=== PATIENT | male | born 1935 | race Caucasian/White ===

== ENCOUNTER 2018-02-18 13:25 | Inpatient (IN) | payer MEDICARE, BC ==
[2018-02-18] MEDS ORDERED: Ondansetron 4 MG Tab.DIS PO ONE (13:59)
[2018-02-18] MEDS ORDERED: Lactated Ringers 1,000 ML IV ONE (14:00)
[2018-02-18] MEDS ORDERED: Sodium Chloride 0.9% 10 ML Syringe FLUSH PRN ×2 (14:00→18:23)
--- NOTE | 2018-02-18 14:38 | EDM.PDOC ---
ED HPI GENERAL MEDICAL PROBLEM - General Chief Complaint: General Stated Complaint: LIGHT DIZZY Time Seen by Provider: 02/18/18 14:20 Source of Information: Reports: Patient, Family, Old Records, RN History Limitations: Reports: No Limitations - History of Present Illness INITIAL COMMENTS - FREE TEXT/NARRATIVE: 82 yo male is brought in by family today with onset of mild confusion and recurrent vomiting since this morning. Has some abdominal distention. Has a pHx of hernia repair. No cough, SOB, or dysuria. No blood in his emesis. No rash. No NEVES. Was not aware of a fever. Onset: Today Onset Date: 02/18/18 Onset Time: 08:00 Duration: Hour(s):, Constant Location: Reports: Abdomen Quality: Reports: Other (no pain) Severity: Moderate Improves with: Reports: None Worsens with: Reports: Eating Context: Reports: Other (hx of hernia repair) Associated Symptoms: Reports: Confusion (mild), Nausea/Vomiting, Weakness. Denies: Cough, Fever/Chills (unaware), Rash, Shortness of Breath Treatments [employer]: Reports: Other (see below) (none) - Related Data Allergies Allergy/AdvReac Type Severity Reaction Status Date / Time No Known Allergies Allergy Verified 02/18/18 13:43 Home Meds: Home Meds Lisinopril 5 mg PO BEDTIME 09/17/13 [History] Omeprazole 20 mg PO BEDTIME 09/17/13 [History] Oxybutynin 15 mg PO DAILY 09/17/13 [History] Tamsulosin HCl 0.8 mg PO DAILY 09/17/13 [History] atorvaSTATin [Lipitor] 20 mg PO BEDTIME 09/17/13 [History] Aspirin [Ecotrin] 325 mg PO DAILY 09/15/15 [History] Atenolol 50 mg PO DAILY 09/15/15 [History] [place]-3 Fatty Acids [Fish Oil] 1,000 mg PO DAILY 03/23/16 [History] Saw [place] 900 mg PO DAILY 03/23/16 [History] Nitroglycerin [Nitrostat] 0.4 mg SL ASDIRECTED PRN 12/04/16 [History] Past Medical History - Past Health History Medical/Surgical History: Denies Medical/Surgical History HEENT History: Reports: Cataract, Hard of Hearing, Impaired Vision Other HEENT History: astigmatism; tinnitus Cardiovascular History: Reports: CAD, High Cholesterol, Hypertension, Stents Gastrointestinal History: Reports: Colon Polyp, Diverticulosis, Irritable Bowel Syndrome Other Gastrointestinal History: Patient states, "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 Genitourinary History: Reports: Prostate Disorder, Renal Calculus, Retention, Urinary Musculoskeletal History: Reports: Fracture, Osteoarthritis Neurological History: Reports: Migraines Dermatologic History: Reports: Urticaria - Infectious Disease History Infectious Disease History: Reports: Chicken Pox, Measles, Mumps, Rubella - Past Surgical History Cardiovascular Surgical History: Reports: Coronary Artery Stent GI Surgical History: Reports: Colonoscopy, EGD, Hernia, Inguinal, Hernia Repair/ Other Musculoskeletal Surgical History: Reports: Arthroscopic Knee, Arthroscopic Procedure, Shoulder Surgery Social & Family History - Family History Oncologic: Reports: Colon, Lung - Tobacco Use Smoking Status *Q: Never Smoker Second Hand Smoke Exposure: No - Caffeine Use Caffeine Use: Reports: Coffee - Alcohol Use Days Per Week of Alcohol Use: 0 - Recreational Drug Use Recreational Drug Use: No ED ROS GENERAL - Review of Systems Review Of Systems: See Below Constitutional: Reports: Chills. Denies: Fever HEENT: Reports: No Symptoms Respiratory: Reports: No Symptoms Cardiovascular: Reports: Lightheadedness GI/Abdominal: Reports: Decreased Appetite, Distension, Nausea, Vomiting. Denies : Abdominal Pain, Black Stool, Bloody Stool, Constipation, Diarrhea : Reports: No Symptoms Musculoskeletal: Reports: No Symptoms Skin: Reports: No Symptoms Neurological: Reports: No Symptoms Psychiatric: Reports: No Symptoms ED EXAM, GENERAL - Physical Exam Exam: See Below Exam Limited By: No Limitations General Appearance: Alert, WD/WN, No Apparent Distress Eye Exam: Bilateral Eye: Normal Inspection, PERRL Ears: Normal External Exam, Normal Canal, Hearing Grossly Normal, Normal TMs Ear Exam: Bilateral Ear: Auricle Normal, Canal Normal, TM normal Nose: Normal Inspection, Normal Mucosa, No Blood Throat/Mouth: Normal Inspection, Normal Lips, Normal Oropharynx, Normal Voice, No Airway Compromise Head: Atraumatic, Normocephalic Neck: Normal Inspection, Supple Respiratory/Chest: No Respiratory Distress, Lungs Clear, Normal Breath Sounds, No Accessory Muscle Use Cardiovascular: Regular Rate, Rhythm, No Edema GI/Abdominal: Normal Bowel Sounds, Soft, Non-Tender, Distended. No: No Distention, Guarding, Rigid, Rebound, Tender Back Exam: Normal Inspection. No: CVA Tenderness (R), CVA Tenderness (L) Extremities: Normal Inspection, Normal Range of Motion, Non-Tender, No Pedal Edema Neurological: Alert, Oriented, CN II-XII Intact, Normal Cognition, No Motor/ Sensory Deficits Psychiatric: Normal Affect, Normal Mood Skin Exam: Warm, Dry, Intact, Normal Color, No Rash Course - Vital Signs Text/Narrative:: Dr. Saldaña aware @ 1640h Last Recorded V/S: Last Vital Signs Temp 38.2 C H 02/18/18 15:41 Pulse 94 02/18/18 15:41 Resp 16 02/18/18 15:41 BP 106/44 L 02/18/18 16:18 Pulse Ox 94 L 02/18/18 16:18 - Orders/Labs/Meds Orders: Active Orders 24 hr Category Date Time Status CULTURE BLOOD [BC] Stat Lab 02/18/18 14:10 Received CULTURE BLOOD [BC] Stat Lab 02/18/18 15:00 Received UA W/MICROSCOPIC [URIN] Stat Lab 02/18/18 15:26 Ordered Levofloxacin/Dextrose 5%-Water [Levaquin in D5W 750 MG/ Med 02/18/18 16:40 Ordered 150 ML] 750 mg Premix Bag 1 bag IV ONETIME Sodium Chloride 0.9% [Saline Flush] Med 02/18/18 14:00 Active 10 ml FLUSH ASDIRECTED PRN Saline Lock Insert [OM.PC] Routine Oth 02/18/18 14:00 Ordered Medication Orders Levofloxacin/Dextrose 750 mg/ (Premix) 150 mls @ 100 mls/hr IV ONETIME ONE Stop: 02/18/18 18:09 Sodium Chloride (Saline Flush) 10 ml FLUSH ASDIRECTED PRN PRN Reason: Keep Vein Open Last Admin: 02/18/18 14:25 Dose: 10 ml Labs: Laboratory Tests 02/18/18 02/18/18 02/18/18 Range/Units 14:10 14:10 14:10 WBC 16.0 H (4.5-11.0) K/uL RBC 4.38 (4.30-5.90) M/uL Hgb 14.5 (12.0-15.0) g/dL Hct 43.2 (40.0-54.0) % MCV 99 H (80-98) fL MCH 33 H (27-31) pg MCHC 34 (32-36) % Plt Count 128 L (150-400) K/uL Sodium 137 L (140-148) mmol/L Potassium 3.4 L (3.6-5.2) mmol/L Chloride 106 (100-108) mmol/L Carbon Dioxide 20 L (21-32) mmol/L Anion Gap 14.4 H (5.0-14.0) mmol/L BUN 24 H (7-18) mg/dL Creatinine 1.3 (0.8-1.3) mg/dL Est Cr Clr Drug Dosing 43.85 mL/min Estimated GFR (MDRD) 53 L (>60) Glucose 135 H (74-106) mg/dL Lactic Acid 2.2 H (0.4-2.0) mmol/L Calcium 8.1 L (8.5-10.1) mg/dL Urine Color Urine Appearance Urine pH (4.5-8.0) Ur Specific [place] (1.008-1.030) Urine Protein (NEGATIVE) mg/dL Urine Glucose (UA) (NEGATIVE) mg/dL Urine Ketones (NEGATIVE) mg/dL Urine Occult Blood (NEGATIVE) Urine Nitrite (NEGAITVE) Urine Bilirubin (NEGATIVE) Urine Urobilinogen (NORMAL) mg/dL Ur Leukocyte Esterase (NEGATIVE) Urine RBC (0-5) Urine WBC (0-5) Ur Epithelial Cells Amorphous Sediment Urine Bacteria Urine Mucus Urine Other 02/18/18 Range/Units 15:26 WBC (4.5-11.0) K/uL RBC (4.30-5.90) M/uL Hgb (12.0-15.0) g/dL Hct (40.0-54.0) % MCV (80-98) fL MCH (27-31) pg MCHC (32-36) % Plt Count (150-400) K/uL Sodium (140-148) mmol/L Potassium (3.6-5.2) mmol/L Chloride (100-108) mmol/L Carbon Dioxide (21-32) mmol/L Anion Gap (5.0-14.0) mmol/L BUN (7-18) mg/dL Creatinine (0.8-1.3) mg/dL Est Cr Clr Drug Dosing mL/min Estimated GFR (MDRD) (>60) Glucose (74-106) mg/dL Lactic Acid (0.4-2.0) mmol/L Calcium (8.5-10.1) mg/dL Urine Color Yellow Urine Appearance Slightly cloudy Urine pH 5.0 (4.5-8.0) Ur Specific [place] 1.020 (1.008-1.030) Urine Protein Negative (NEGATIVE) mg/dL Urine Glucose (UA) Normal (NEGATIVE) mg/dL Urine Ketones 15 H (NEGATIVE) mg/dL Urine Occult Blood Negative (NEGATIVE) Urine Nitrite Negative (NEGAITVE) Urine Bilirubin Small (NEGATIVE) Urine Urobilinogen 1 (NORMAL) mg/dL Ur Leukocyte Esterase Negative (NEGATIVE) Urine RBC 0-5 (0-5) Urine WBC 0-5 (0-5) Ur Epithelial Cells Rare Amorphous Sediment Not seen Urine Bacteria Not seen Urine Mucus Moderate Urine Other Meds: Medications Generic Name Dose Route Start Last Admin Trade Name Freq PRN Reason Stop Dose Admin Levofloxacin/Dextrose 750 mg/ 150 mls @ 100 mls/hr 02/18/18 16:40 Premix IV 02/18/18 18:09 ONETIME ONE Sodium Chloride 10 ml 02/18/18 14:00 02/18/18 14:25 Saline Flush FLUSH 10 ml ASDIRECTED PRN Administration Keep Vein Open Discontinued Medications Generic Name Dose Route Start Last Admin Trade Name Freq PRN Reason Stop Dose Admin Lactated Ringer's 1,000 mls @ 1,000 mls/hr 02/18/18 14:00 02/18/18 14:24 Ringers, Lactated IV 02/18/18 14:59 1,000 mls/hr BOLUS ONE Administration Metoclopramide HCl 10 mg 02/18/18 16:00 02/18/18 16:08 Reglan IVPUSH 02/18/18 16:01 10 mg ONETIME ONE Administration Ondansetron HCl 4 mg 02/18/18 13:59 02/18/18 14:19 Zofran Odt PO 02/18/18 14:00 4 mg ONETIME ONE Administration - Radiology Interpretation Free Text/Narrative:: CXR-neg Upright Abdominal X-ray-ileus Departure - Departure Time of Disposition: 17:00 Disposition: Admitted As Inpatient 68 Condition: Fair Clinical Impression: Elevated WBC count Qualifiers: Leukocytosis type: unspecified Qualified Code(s): D72.829 - Elevated white blood cell count, unspecified Sepsis Qualifiers: Sepsis type: sepsis due to unspecified organism Qualified Code(s): A41.9 - Sepsis, unspecified organism - Discharge Information Referrals: Luther Lopez MD [Primary Care Provider] - Forms: ED Department Discharge - My Orders Last 24 Hours: My Active Orders 02/18/18 14:00 Sodium Chloride 0.9% [Saline Flush] 10 ml FLUSH ASDIRECTED PRN Saline Lock Insert [OM.PC] Routine 02/18/18 14:10 CULTURE BLOOD [BC] Stat 02/18/18 15:00 CULTURE BLOOD [BC] Stat 02/18/18 15:26 UA W/MICROSCOPIC [URIN] Stat 02/18/18 16:40 Levofloxacin/Dextrose 5%-Water [Levaquin in D5W 750 MG/150 ML] 750 mg Premix Bag 1 bag IV ONETIME - Assessment/Plan Last 24 Hours: My Active Orders 02/18/18 14:00 Sodium Chloride 0.9% [Saline Flush] 10 ml FLUSH ASDIRECTED PRN Saline Lock Insert [OM.PC] Routine 02/18/18 14:10 CULTURE BLOOD [BC] Stat 02/18/18 15:00 CULTURE BLOOD [BC] Stat 02/18/18 15:26 UA W/MICROSCOPIC [URIN] Stat 02/18/18 16:40 Levofloxacin/Dextrose 5%-Water [Levaquin in D5W 750 MG/150 ML] 750 mg Premix Bag 1 bag IV ONETIME
--- NOTE | 2018-02-18 15:37 | CR ---
CHEST: Portable CLINICAL HISTORY:Abdominal distention and vomiting COMPARISON:2010 FINDINGS: Heart and pulmonary vascularity are normal. No infiltrate effusion or pneumothorax is seen . Minimal streaky density in both lung bases is felt to represent some streaky atelectasis. IMPRESSION: Streaky bibasilar atelectasis
--- NOTE | 2018-02-18 15:40 | CR ---
Abdomen 1V Upright CLINICAL HISTORY: Abdominal distention with vomiting FINDINGS: There are scattered air-filled loops of small bowel in a nonspecific pattern. There is gas and liquid stool in the right colon. No free air is seen. IMPRESSION: Gaseous distention in a nonspecific pattern
[2018-02-18] MEDS ORDERED: Metoclopramide 10 MG/2 ML SDV IVPUSH ONE (16:00)
[2018-02-18] MEDS ORDERED: Lactated Ringers 1,000 ML IV SCH ×2 (16:30→18:23)
[2018-02-18] MEDS ORDERED: Levofloxacin/Dextrose 5%-Water 750 MG in Premix Bag 1 BAG IV ONE (16:40)
--- NOTE | 2018-02-18 18:13 | PCM.HP ---
H&P History of Present Illness - General Date of Service: 02/18/18 Admit Problem/Dx: Admission Diagnosis/Problem Admission Diagnosis/Problem Fever Source of Information: Patient, Family, Provider, RN Notes Reviewed History Limitations: Reports: No Limitations - History of Present Illness Initial Comments - Free Text/Narative: Mr. Rios is an 82-year-old gentleman who is admitted through the emergency department with a febrile illness and early sepsis. He felt well until early this morning when he noted onset of significant weakness associated with nausea and vomiting. During this period time is also had a temperature elevation. Because of symptoms he presented to the emergency department for further evaluation. White blood cell count was found to be elevated and he has had a documented temperature elevation while in the emergency department. Nausea and vomiting have improved after hydration and anti-emetic therapy. Chest x-ray shows no obvious infiltrates and urinalysis is unremarkable for infection. Heart rate was elevated on admission but has improved with IV hydration. Lactic acid level is slightly elevated. No other obvious source of infection has been identified on physical examination or by history. - Related Data Allergies/Adverse Reactions: Allergies Allergy/AdvReac Type Severity Reaction Status Date / Time No Known Allergies Allergy Verified 02/18/18 13:43 Home Medications: Home Meds Lisinopril 5 mg PO BEDTIME 09/17/13 [History] Omeprazole 20 mg PO BEDTIME 09/17/13 [History] Oxybutynin 15 mg PO DAILY 09/17/13 [History] Tamsulosin HCl 0.8 mg PO DAILY 09/17/13 [History] atorvaSTATin [Lipitor] 20 mg PO BEDTIME 09/17/13 [History] Aspirin [Ecotrin] 325 mg PO DAILY 09/15/15 [History] Atenolol 50 mg PO DAILY 09/15/15 [History] [place]-3 Fatty Acids [Fish Oil] 1,000 mg PO DAILY 03/23/16 [History] Saw [place] 900 mg PO DAILY 03/23/16 [History] Nitroglycerin [Nitrostat] 0.4 mg SL ASDIRECTED PRN 12/04/16 [History] Past Medical History - Past Health History Medical/Surgical History: Denies Medical/Surgical History HEENT History: Reports: Cataract, Hard of Hearing, Impaired Vision Other HEENT History: astigmatism; tinnitus Cardiovascular History: Reports: CAD, High Cholesterol, Hypertension, Stents Gastrointestinal History: Reports: Colon Polyp, Diverticulosis, Irritable Bowel Syndrome Other Gastrointestinal History: Patient states, "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 Genitourinary History: Reports: Prostate Disorder, Renal Calculus, Retention, Urinary Musculoskeletal History: Reports: Fracture, Osteoarthritis Neurological History: Reports: Migraines Dermatologic History: Reports: Urticaria - Infectious Disease History Infectious Disease History: Reports: Chicken Pox, Measles, Mumps, Rubella - Past Surgical History Cardiovascular Surgical History: Reports: Coronary Artery Stent GI Surgical History: Reports: Colonoscopy, EGD, Hernia, Inguinal, Hernia Repair/ Other Musculoskeletal Surgical History: Reports: Arthroscopic Knee, Arthroscopic Procedure, Shoulder Surgery Social & Family History - Family History Oncologic: Reports: Colon, Lung - Tobacco Use Smoking Status *Q: Never Smoker Second Hand Smoke Exposure: No - Caffeine Use Caffeine Use: Reports: Coffee - Alcohol Use Days Per Week of Alcohol Use: 0 - Recreational Drug Use Recreational Drug Use: No H&P Review of Systems - Review of Systems: Review Of Systems: See Below General: Reports: Fever, Chills, Weakness, Diaphoresis, Decreased Appetite HEENT: Reports: No Symptoms Pulmonary: Reports: No Symptoms Cardiovascular: Reports: No Symptoms Gastrointestinal: Reports: Constipation, Decreased Appetite, Nausea, Vomiting. Denies: Abdominal Pain, Diarrhea, Difficulty Swallowing, Distension, Hematemesis , Hematochezia, Melena Genitourinary: Reports: No Symptoms Musculoskeletal: Reports: No Symptoms Skin: Reports: No Symptoms Psychiatric: Reports: No Symptoms Neurological: Reports: No Symptoms Hematologic/Lymphatic: Reports: No Symptoms Immunologic: Reports: No Symptoms Exam - Exam Exam: See Below - Vital Signs Vital Signs: Last Vital Signs Temp 100.7 F H 02/18/18 15:41 Pulse 94 02/18/18 15:41 Resp 16 02/18/18 15:41 BP 96/42 L 02/18/18 16:59 Pulse Ox 92 L 02/18/18 16:59 Weight: 158 lb 1.143 oz - Exam Quality Assessment: DVT Prophylaxis General: Alert, Oriented, Cooperative, Mild Distress HEENT: Conjunctiva Clear, Hearing Intact, Normal Nasal Septum, Posterior Pharynx Clear, Pupils Equal. No: Mucosa Moist & [place] Neck: Supple, Trachea Midline Lungs: Clear to Auscultation, Normal Respiratory Effort Cardiovascular: Regular Rate, Regular Rhythm, Normal S1, Normal S2. No: Systolic Murmur, Diastolic Murmur GI/Abdominal Exam: Soft, Non-Tender, No Organomegaly, No Distention Back Exam: Normal Inspection, Full Range of Motion Extremities: Non-Tender, No Pedal Edema. No: Joint Swelling Skin: Warm, Dry, Intact Neurological: Cranial Nerves Intact, Strength Equal Bilateral, Normal Speech, Normal Tone, Sensation Intact. No: Focal Deficit Neuro Extensive - Mental Status: Alert, Oriented x3, Normal Mood/Affect, Normal Cognition, Memory Intact - Patient Data Lab Results Last 24 hrs: Laboratory Results - last 24 hr 02/18/18 02/18/18 02/18/18 Range/Units 14:10 14:10 14:10 WBC 16.0 H (4.5-11.0) K/uL RBC 4.38 (4.30-5.90) M/uL Hgb 14.5 (12.0-15.0) g/dL Hct 43.2 (40.0-54.0) % MCV 99 H (80-98) fL MCH 33 H (27-31) pg MCHC 34 (32-36) % Plt Count 128 L (150-400) K/uL Sodium 137 L (140-148) mmol/L Potassium 3.4 L (3.6-5.2) mmol/L Chloride 106 (100-108) mmol/L Carbon Dioxide 20 L (21-32) mmol/L Anion Gap 14.4 H (5.0-14.0) mmol/L BUN 24 H (7-18) mg/dL Creatinine 1.3 (0.8-1.3) mg/dL Est Cr Clr Drug Dosing 43.85 mL/min Estimated GFR (MDRD) 53 L (>60) Glucose 135 H (74-106) mg/dL Lactic Acid 2.2 H (0.4-2.0) mmol/L Calcium 8.1 L (8.5-10.1) mg/dL Urine Color Urine Appearance Urine pH (4.5-8.0) Ur Specific [place] (1.008-1.030) Urine Protein (NEGATIVE) mg/dL Urine Glucose (UA) (NEGATIVE) mg/dL Urine Ketones (NEGATIVE) mg/dL Urine Occult Blood (NEGATIVE) Urine Nitrite (NEGAITVE) Urine Bilirubin (NEGATIVE) Urine Urobilinogen (NORMAL) mg/dL Ur Leukocyte Esterase (NEGATIVE) Urine RBC (0-5) Urine WBC (0-5) Ur Epithelial Cells Amorphous Sediment Urine Bacteria Urine Mucus Urine Other 02/18/18 Range/Units 15:26 WBC (4.5-11.0) K/uL RBC (4.30-5.90) M/uL Hgb (12.0-15.0) g/dL Hct (40.0-54.0) % MCV (80-98) fL MCH (27-31) pg MCHC (32-36) % Plt Count (150-400) K/uL Sodium (140-148) mmol/L Potassium (3.6-5.2) mmol/L Chloride (100-108) mmol/L Carbon Dioxide (21-32) mmol/L Anion Gap (5.0-14.0) mmol/L BUN (7-18) mg/dL Creatinine (0.8-1.3) mg/dL Est Cr Clr Drug Dosing mL/min Estimated GFR (MDRD) (>60) Glucose (74-106) mg/dL Lactic Acid (0.4-2.0) mmol/L Calcium (8.5-10.1) mg/dL Urine Color Yellow Urine Appearance Slightly cloudy Urine pH 5.0 (4.5-8.0) Ur Specific [place] 1.020 (1.008-1.030) Urine Protein Negative (NEGATIVE) mg/dL Urine Glucose (UA) Normal (NEGATIVE) mg/dL Urine Ketones 15 H (NEGATIVE) mg/dL Urine Occult Blood Negative (NEGATIVE) Urine Nitrite Negative (NEGAITVE) Urine Bilirubin Small (NEGATIVE) Urine Urobilinogen 1 (NORMAL) mg/dL Ur Leukocyte Esterase Negative (NEGATIVE) Urine RBC 0-5 (0-5) Urine WBC 0-5 (0-5) Ur Epithelial Cells Rare Amorphous Sediment Not seen Urine Bacteria Not seen Urine Mucus Moderate Urine Other Result Diagrams: 02/18/18 14:10 02/18/18 14:10 *Q Meaningful Use (ADM) - VTE Risk Assess *Q Each Risk Factor Represents 1 Point: None Total Score 1 Point Risk Factors: 0 Each Risk Factor Represents 2 Points: None Total Score 2 Point Risk Factors: 0 Each Risk Factor Represents 3 Points: Age 75 Years or Greater Total Score 3 Point Risk Factors: 3 Each Risk Factor Represents 5 Points: None Total Score 5 Point Risk Factors: 0 Venous Thromboembolism Risk Factor Score *Q: 3 Problem List Initiated/Reviewed/Updated: Yes Orders Last 24hrs: Active Orders 24 hr Category Date Time Status Patient Status Manage Transfer [TRANSFER] Routine ADT 02/18/18 17:41 Active CULTURE BLOOD [BC] Stat Lab 02/18/18 14:10 Received CULTURE BLOOD [BC] Stat Lab 02/18/18 15:00 Received UA W/MICROSCOPIC [URIN] Stat Lab 02/18/18 15:26 Ordered Lactated Ringers [Ringers, Lactated] 1,000 ml Med 02/18/18 16:30 Active IV ASDIRECTED Levofloxacin/Dextrose 5%-Water [Levaquin in D5W 750 MG/ Med 02/18/18 16:40 Active 150 ML] 750 mg Premix Bag 1 bag IV ONETIME Sodium Chloride 0.9% [Saline Flush] Med 02/18/18 14:00 Active 10 ml FLUSH ASDIRECTED PRN Saline Lock Insert [OM.PC] Routine Oth 02/18/18 14:00 Ordered Resuscitation Status Routine Resus Stat 02/18/18 17:45 Ordered Medication Orders Levofloxacin/Dextrose 750 mg/ (Premix) 150 mls @ 100 mls/hr IV ONETIME ONE Stop: 02/18/18 18:09 Last Admin: 02/18/18 17:32 Dose: 100 mls/hr Lactated Ringer's (Ringers, Lactated) 1,000 mls @ 999 mls/hr IV ASDIRECTED VISHAL Last Admin: 02/18/18 16:30 Dose: 999 mls/hr Sodium Chloride (Saline Flush) 10 ml FLUSH ASDIRECTED PRN PRN Reason: Keep Vein Open Last Admin: 02/18/18 14:25 Dose: 10 ml Assessment/Plan Comment:: ASSESSMENT AND PLAN FEBRILE ILLNESS WITH EARLY SEPSIS-specific source of infection not yet identified, possible sources would be abdominal versus pulmonary. Abdomen is been nontender any currently denies any respiratory symptoms. He did experience nausea vomiting associated with weakness and fever, as well as confusion. White blood cell count is elevated and there is some mild elevation in lactic acid. Temperature elevation noted in the emergency department, he was tachycardic on initial presentation but that is improved with hydration. -Influenza a and B antigens -Blood cultures pending -Repeat chest x-ray in a.m. after hydration -Repeat labs in a.m. -IV fluids for management of sepsis and dehydration per protocol -Consider CT scan of abdomen for further evaluation -Empiric IV antibiotic therapy with levofloxacin, pending culture results and further evaluation CHRONIC KIDNEY DISEASE STAGE III -Closely monitor renal function and urine output HYPERTENSION -Continue outpatient medical regimen MAINTENANCE ISSUES -DVT prophylaxis;Lovenox 40 mg subcutaneous daily -GI prophylaxis;Continue outpatient PPI therapy -Pyle catheter;Not indicated -Nutrition;Clear liquid diet -Nicotine dependence;Not required CODE STATUS-DNR/DNI ADMISSION STATUS-patient will be admitted to inpatient status, expect at least a 2 night hospital stay for evaluation and management of problems as outlined above. At the time of this admission I do not reasonably expected evaluation and management of this problem will require more than a 96 hour hospital stay. DISPOSITION-anticipate discharge to home after the hospital stay. PRIMARY CARE PROVIDER-Dr. Lopez
[2018-02-18] MEDS ORDERED: Enoxaparin 40 MG/0.4 ML Syringe SUBCUT SCH (18:23)
[2018-02-18] MEDS ORDERED: Albuterol 0.083% 2.5 MG/3 ML Neb Soln NEB PRN (18:23)
[2018-02-18] MEDS ORDERED: Magnesium Hydroxide 400 MG/5 ML Susp 30 ML Cup PO PRN (18:23)
[2018-02-18] MEDS ORDERED: Acetaminophen 325 MG Tab PO PRN (18:23)
[2018-02-18] MEDS ORDERED: Potassium Chloride 40 MEQ in Premix Bag 1 BAG IV ONE (18:23)
[2018-02-18] MEDS ORDERED: oxyCODONE 5 MG Tab PO PRN (18:23)
[2018-02-18] MEDS ORDERED: Polyethylene Glycol 3350 Powder 17 GM Packet PO PRN (18:23)
[2018-02-18] MEDS ORDERED: Ondansetron 4 MG/2 ML SDV IV PRN (18:23)
[2018-02-18] MEDS: Pantoprazole 40 MG Tab.CR PO SCH (19:51)
[2018-02-18] MEDS: atorvaSTATin 20 MG Tab PO SCH (20:00)
[2018-02-18] MEDS ORDERED: Lactated Ringers 500 ML IV ONE (20:34)
[2018-02-18] MEDS ORDERED: Lisinopril 5 MG Tab PO SCH (21:00)
[2018-02-18] MEDS: Lactated Ringers 1,000 ML IV SCH (23:36)
[2018-02-19] MEDS: Lactated Ringers 500 ML IV SCH ×2 (03:13→04:57)
[2018-02-19] MEDS ORDERED: Lactated Ringers 500 ML IV SCH (04:45)
[2018-02-19] MEDS: Pantoprazole 40 MG Tab.CR PO SCH (08:11)
[2018-02-19] MEDS: Tamsulosin 0.4 MG Cap.ER PO SCH (08:12)
[2018-02-19] MEDS: Oxybutynin 5 MG Tab PO SCH ×3 (08:12→20:05)
[2018-02-19] MEDS: Aspirin 325 MG Tab.EC PO SCH (08:12)
[2018-02-19] MEDS: SAW PALMETTO (PTOM) PO SCH (08:13)
[2018-02-19] MEDS ORDERED: SAW PALMETTO 900 MG PO SCH (09:00)
[2018-02-19] MEDS ORDERED: Atenolol 50 MG Tab PO SCH (09:00)
[2018-02-19] MEDS ORDERED: Magnesium Sulfate/Water 2 GM in Premix Bag 1 BAG IV ONE (09:00)
[2018-02-19] MEDS ORDERED: Oxybutynin 5 MG Tab PO SCH (09:00)
[2018-02-19] MEDS: Lactated Ringers 1,000 ML IV SCH (09:22)
[2018-02-19] MEDS: Magnesium Oxide 400 MG Tab PO SCH ×2 (09:25→20:05)
--- NOTE | 2018-02-19 12:14 | PCM.PN ---
- General Info Date of Service: 02/19/18 Subjective Update: Mr. Rios has felt significantly improved since admission, nausea vomiting have resolved and his energy level has improved. He is tolerated a regular diet this morning without significant difficulty. Did have temperature elevations through the night and evidence of some ongoing sepsis, which now appears to be resolved. X-ray this morning does show some evidence of bibasilar infiltrates consistent with pneumonia. Functional Status: Reports: Pain Controlled, Tolerating Diet, Ambulating - Review of Systems General: Reports: Fever, Weakness, Chills Pulmonary: Reports: No Symptoms, Shortness of Breath Cardiovascular: Reports: No Symptoms Gastrointestinal: Reports: No Symptoms - Patient Data Vitals - Most Recent: Last Vital Signs Temp 97.9 F 02/19/18 11:00 Pulse 65 02/19/18 11:00 Resp 18 02/19/18 11:00 BP 97/42 L 02/19/18 11:00 Pulse Ox 94 L 02/19/18 11:00 Weight - Most Recent: 164 lb 6.4 oz I&O - Last 24 Hours: Intake & Output 02/18/18 02/19/18 02/19/18 22:59 06:59 14:59 Intake Total 2060 1745 210 Output Total 450 700 Balance 2060 1295 -490 Lab Results Last 24 Hours: Laboratory Results - last 24 hr 02/18/18 02/18/18 02/18/18 Range/Units 14:10 14:10 14:10 WBC 16.0 H (4.5-11.0) K/uL RBC 4.38 (4.30-5.90) M/uL Hgb 14.5 (12.0-15.0) g/dL Hct 43.2 (40.0-54.0) % MCV 99 H (80-98) fL MCH 33 H (27-31) pg MCHC 34 (32-36) % Plt Count 128 L (150-400) K/uL Add Manual Diff Neutrophils % (Manual) (36-66) % Band Neutrophils % (5-11) % Lymphocytes % (Manual) (24-44) % Monocytes % (Manual) (2-6) % ESR (0-20) mm/hr Sodium 137 L (140-148) mmol/L Potassium 3.4 L (3.6-5.2) mmol/L Chloride 106 (100-108) mmol/L Carbon Dioxide 20 L (21-32) mmol/L Anion Gap 14.4 H (5.0-14.0) mmol/L BUN 24 H (7-18) mg/dL Creatinine 1.3 (0.8-1.3) mg/dL Est Cr Clr Drug Dosing 43.85 mL/min Estimated GFR (MDRD) 53 L (>60) Glucose 135 H (74-106) mg/dL Lactic Acid 2.2 H (0.4-2.0) mmol/L Calcium 8.1 L (8.5-10.1) mg/dL Magnesium (1.8-2.4) mg/dL Total Bilirubin (0.2-1.0) mg/dL AST (15-37) U/L ALT (12-78) U/L Alkaline Phosphatase (46-116) U/L C-Reactive Protein (0.0-0.3) mg/dL Total Protein (6.4-8.2) g/dL Albumin (3.4-5.0) g/dL Globulin (2.3-3.5) g/dL Albumin/Globulin Ratio (1.2-2.2) Lipase (73-393) U/L Urine Color Urine Appearance Urine pH (4.5-8.0) Ur Specific Labelle (1.008-1.030) Urine Protein (NEGATIVE) mg/dL Urine Glucose (UA) (NEGATIVE) mg/dL Urine Ketones (NEGATIVE) mg/dL Urine Occult Blood (NEGATIVE) Urine Nitrite (NEGAITVE) Urine Bilirubin (NEGATIVE) Urine Urobilinogen (NORMAL) mg/dL Ur Leukocyte Esterase (NEGATIVE) Urine RBC (0-5) Urine WBC (0-5) Ur Epithelial Cells Amorphous Sediment Urine Bacteria Urine Mucus Urine Other 02/18/18 02/18/18 02/19/18 Range/Units 15:26 22:59 04:10 WBC (4.5-11.0) K/uL RBC (4.30-5.90) M/uL Hgb (12.0-15.0) g/dL Hct (40.0-54.0) % MCV (80-98) fL MCH (27-31) pg MCHC (32-36) % Plt Count (150-400) K/uL Add Manual Diff Neutrophils % (Manual) (36-66) % Band Neutrophils % (5-11) % Lymphocytes % (Manual) (24-44) % Monocytes % (Manual) (2-6) % ESR (0-20) mm/hr Sodium (140-148) mmol/L Potassium (3.6-5.2) mmol/L Chloride (100-108) mmol/L Carbon Dioxide (21-32) mmol/L Anion Gap (5.0-14.0) mmol/L BUN (7-18) mg/dL Creatinine (0.8-1.3) mg/dL Est Cr Clr Drug Dosing mL/min Estimated GFR (MDRD) (>60) Glucose (74-106) mg/dL Lactic Acid 1.1 (0.4-2.0) mmol/L Calcium (8.5-10.1) mg/dL Magnesium (1.8-2.4) mg/dL Total Bilirubin (0.2-1.0) mg/dL AST (15-37) U/L ALT (12-78) U/L Alkaline Phosphatase (46-116) U/L C-Reactive Protein (0.0-0.3) mg/dL Total Protein (6.4-8.2) g/dL Albumin (3.4-5.0) g/dL Globulin (2.3-3.5) g/dL Albumin/Globulin Ratio (1.2-2.2) Lipase 48 L (73-393) U/L Urine Color Yellow Urine Appearance Slightly cloudy Urine pH 5.0 (4.5-8.0) Ur Specific Labelle 1.020 (1.008-1.030) Urine Protein Negative (NEGATIVE) mg/dL Urine Glucose (UA) Normal (NEGATIVE) mg/dL Urine Ketones 15 H (NEGATIVE) mg/dL Urine Occult Blood Negative (NEGATIVE) Urine Nitrite Negative (NEGAITVE) Urine Bilirubin Small (NEGATIVE) Urine Urobilinogen 1 (NORMAL) mg/dL Ur Leukocyte Esterase Negative (NEGATIVE) Urine RBC 0-5 (0-5) Urine WBC 0-5 (0-5) Ur Epithelial Cells Rare Amorphous Sediment Not seen Urine Bacteria Not seen Urine Mucus Moderate Urine Other 02/19/18 02/19/18 02/19/18 Range/Units 04:10 04:10 04:10 WBC 13.0 H (4.5-11.0) K/uL RBC 3.59 L (4.30-5.90) M/uL Hgb 12.2 D (12.0-15.0) g/dL Hct 35.9 L (40.0-54.0) % MCV 100 H (80-98) fL MCH 34 H (27-31) pg MCHC 34 (32-36) % Plt Count 110 L (150-400) K/uL Add Manual Diff Yes Neutrophils % (Manual) 49 (36-66) % Band Neutrophils % 7 (5-11) % Lymphocytes % (Manual) 43 (24-44) % Monocytes % (Manual) 1 L (2-6) % ESR 16 (0-20) mm/hr Sodium 138 L (140-148) mmol/L Potassium 3.6 (3.6-5.2) mmol/L Chloride 107 (100-108) mmol/L Carbon Dioxide 22 (21-32) mmol/L Anion Gap 12.6 (5.0-14.0) mmol/L BUN 15 (7-18) mg/dL Creatinine 1.0 (0.8-1.3) mg/dL Est Cr Clr Drug Dosing 57.00 mL/min Estimated GFR (MDRD) > 60 (>60) Glucose 93 (74-106) mg/dL Lactic Acid 1.0 (0.4-2.0) mmol/L Calcium 7.3 L (8.5-10.1) mg/dL Magnesium 1.7 L (1.8-2.4) mg/dL Total Bilirubin 0.7 (0.2-1.0) mg/dL AST 20 (15-37) U/L ALT 25 (12-78) U/L Alkaline Phosphatase 59 (46-116) U/L C-Reactive Protein 7.04 H (0.0-0.3) mg/dL Total Protein 4.9 L (6.4-8.2) g/dL Albumin 2.6 L (3.4-5.0) g/dL Globulin 2.3 (2.3-3.5) g/dL Albumin/Globulin Ratio 1.1 L (1.2-2.2) Lipase (73-393) U/L Urine Color Urine Appearance Urine pH (4.5-8.0) Ur Specific Labelle (1.008-1.030) Urine Protein (NEGATIVE) mg/dL Urine Glucose (UA) (NEGATIVE) mg/dL Urine Ketones (NEGATIVE) mg/dL Urine Occult Blood (NEGATIVE) Urine Nitrite (NEGAITVE) Urine Bilirubin (NEGATIVE) Urine Urobilinogen (NORMAL) mg/dL Ur Leukocyte Esterase (NEGATIVE) Urine RBC (0-5) Urine WBC (0-5) Ur Epithelial Cells Amorphous Sediment Urine Bacteria Urine Mucus Urine Other Pete Results Last 24 Hours: Microbiology 02/18/18 18:23 Influenza Type A Antigen Screen - Final Nasopharyngeal Swab NEGATIVE INFLUENZA A VIRUS AG Influenza Type B Antigen Screen - Final NEGATIVE INFLUENZA B VIRUS AG Med Orders - Current: Current Medications Acetaminophen (Tylenol) 650 mg PO Q4H PRN PRN Reason: Pain (Mild 1-3)/fever Last Admin: 02/18/18 19:57 Dose: 650 mg Albuterol (Proventil Neb Soln) 2.5 mg NEB Q4H PRN PRN Reason: Shortness Of Breath/wheezing Aspirin (Ecotrin) 325 mg PO DAILY [facility] Last Admin: 02/19/18 08:12 Dose: 325 mg Atorvastatin Calcium (Lipitor) 20 mg PO BEDTIME [facility] Last Admin: 02/18/18 20:00 Dose: 20 mg Enoxaparin Sodium (Lovenox) 40 mg SUBCUT Q24H [facility] Lactated Ringer's (Ringers, Lactated) 1,000 mls @ 75 mls/hr IV ASDIRECTED [facility] Lactobacillus Rhamnosus (Culturelle) 1 cap PO BID [facility] Magnesium Hydroxide (Milk Of Magnesia) 30 ml PO Q12H PRN PRN Reason: Constipation Magnesium Oxide (Magnesium Oxide) 400 mg PO BID [facility] Last Admin: 02/19/18 09:25 Dose: 400 mg Ondansetron HCl (Zofran) 4 mg IV Q4H PRN PRN Reason: Nausea/Vomiting Oxybutynin Chloride (Oxybutynin) 5 mg PO TID [facility] Last Admin: 02/19/18 08:12 Dose: 5 mg Oxycodone HCl (Oxycodone) 5 mg PO Q4H PRN PRN Reason: Pain (moderate 4-6) Pantoprazole Sodium (Protonix) 40 mg PO ACBREAKFAST [facility] Last Admin: 02/19/18 08:11 Dose: 40 mg [place] (Ptom) 0 each PO DAILY [facility] Last Admin: 02/19/18 08:13 Dose: Not Given Polyethylene Glycol (Miralax) 17 gm PO DAILY PRN PRN Reason: Constipation Senna/Docusate Sodium (Senna Plus) 1 tab PO BID PRN PRN Reason: Constipation Sodium Chloride (Saline Flush) 10 ml FLUSH ASDIRECTED PRN PRN Reason: Keep Vein Open Tamsulosin HCl (Flomax) 0.8 mg PO DAILY [facility] Last Admin: 02/19/18 08:12 Dose: 0.8 mg Discontinued Medications Atenolol (Tenormin) 50 mg PO DAILY [facility] Enoxaparin Sodium (Lovenox) 40 mg SUBCUT DAILY [facility] Last Admin: 02/18/18 19:57 Dose: 40 mg Lactated Ringer's (Ringers, Lactated) 1,000 mls @ 1,000 mls/hr IV BOLUS ONE Stop: 02/18/18 14:59 Last Admin: 02/18/18 14:24 Dose: 1,000 mls/hr Levofloxacin/Dextrose 750 mg/ (Premix) 150 mls @ 100 mls/hr IV ONETIME ONE Stop: 02/18/18 18:09 Last Admin: 02/18/18 17:32 Dose: 100 mls/hr Lactated Ringer's (Ringers, Lactated) 1,000 mls @ 999 mls/hr IV ASDIRECTED [facility] Last Admin: 02/18/18 16:30 Dose: 999 mls/hr Lactated Ringer's (Ringers, Lactated) 1,000 mls @ 250 mls/hr IV ASDIRECTED [facility] Stop: 02/19/18 00:24 Lactated Ringer's (Ringers, Lactated) 1,000 mls @ 125 mls/hr IV ASDIRECTED [facility] Last Admin: 02/19/18 09:22 Dose: 125 mls/hr Potassium Chloride 40 meq/ (Premix) 100 mls @ 25 mls/hr IV ONETIME ONE Stop: 02/18/18 22:22 Last Admin: 02/18/18 20:14 Dose: 25 mls/hr Lactated Ringer's (Ringers, Lactated) 500 mls @ 500 mls/hr IV ONETIME ONE Stop: 02/18/18 21:33 Last Admin: 02/18/18 21:42 Dose: 500 mls/hr Lactated Ringer's (Ringers, Lactated) 500 mls @ 500 mls/hr IV .BOLUS [facility] Last Admin: 02/19/18 04:57 Dose: 500 mls/hr Lactated Ringer's (Ringers, Lactated) 500 mls @ 999 mls/hr IV .BOLUS [facility] Last Admin: 02/19/18 04:45 Dose: 999 mls/hr Magnesium Sulfate 2 gm/ Premix 50 mls @ 25 mls/hr IV ONETIME ONE Stop: 02/19/18 10:59 Last Admin: 02/19/18 09:25 Dose: 25 mls/hr Lisinopril (Prinivil) 5 mg PO BEDTIME [facility] Last Admin: 02/18/18 20:01 Dose: Not Given Metoclopramide HCl (Reglan) 10 mg IVPUSH ONETIME ONE Stop: 02/18/18 16:01 Last Admin: 02/18/18 16:08 Dose: 10 mg Ondansetron HCl (Zofran Odt) 4 mg PO ONETIME ONE Stop: 02/18/18 14:00 Last Admin: 02/18/18 14:19 Dose: 4 mg Sodium Chloride (Saline Flush) 10 ml FLUSH ASDIRECTED PRN PRN Reason: Keep Vein Open Last Admin: 02/18/18 14:25 Dose: 10 ml - Exam Quality Assessment: DVT Prophylaxis General: Alert, Oriented, Cooperative, No Acute Distress Lungs: Normal Respiratory Effort, Rales. No: Decreased Breath Sounds, Crackles , Rhonchi, Wheezing Cardiovascular: Regular Rate, Regular Rhythm, No Murmurs GI/Abdominal Exam: Soft, Non-Tender, No Organomegaly, No Distention Extremities: Non-Tender, No Pedal Edema Skin: Warm, Dry, Intact - Problem List Review Problem List Initiated/Reviewed/Updated: Yes - My Orders Last 24 Hours: My Active Orders 02/18/18 17:45 Resuscitation Status Routine 02/18/18 18:23 Patient Status [ADT] Routine Ambulate [RC] QID Height and Weight [RC] DAILY Intake and Output [RC] QSHIFT Notify Provider Vital Signs [RC] ASDIRECTED Oxygen Therapy [RC] PRN Peripheral IV Care [RC] Q12H RT Aerosol Therapy [RC] ASDIRECTED Up With Assistance [RC] ASDIRECTED Up to Chair [RC] QID VTE/DVT Education [RC] Per Unit Routine Vital Signs [RC] Q4H INFLUENZA A+B AG SCREEN [RM] Stat Acetaminophen [Tylenol] 650 mg PO Q4H PRN Albuterol [Proventil Neb Soln] 2.5 mg NEB Q4H PRN Docusate Sodium/Sennosides [Senna Plus] 1 tab PO BID PRN Magnesium Hydroxide [Milk of Magnesia] 30 ml PO Q12H PRN Ondansetron [Zofran] 4 mg IV Q4H PRN Polyethylene Glycol 3350 [MiraLAX] 17 gm PO DAILY PRN Sodium Chloride 0.9% [Saline Flush] 10 ml FLUSH ASDIRECTED PRN oxyCODONE 5 mg PO Q4H PRN Peripheral IV Insertion Adult [OM.PC] Routine 02/18/18 21:00 atorvaSTATin [Lipitor] 20 mg PO BEDTIME 02/19/18 05:11 Chest 2V [CR] AM 02/19/18 09:00 Aspirin [Ecotrin] 325 mg PO DAILY Magnesium Oxide 400 mg PO BID Oxybutynin 5 mg PO TID Patient's Own Medication [Ptom] 0 each PO DAILY Tamsulosin [Flomax] 0.8 mg PO DAILY 02/19/18 12:00 Lactobacillus Rhamnosus GG [Culturelle] 1 cap PO BID 02/19/18 12:15 Lactated Ringers [Ringers, Lactated] 1,000 ml IV ASDIRECTED 02/19/18 18:00 Enoxaparin [Lovenox] 40 mg SUBCUT Q24H 02/19/18 Breakfast 2 Gram Sodium Diet [DIET] 02/20/18 05:00 BASIC METABOLIC PANEL,BMP [CHEM] Timed CBC WITH AUTO DIFF [HEME] Timed MAGNESIUM [CHEM] Timed - Plan Plan:: ASSESSMENT AND PLAN PNEUMONIA WITH EARLY SEPSIS-chest x-ray after hydration shows evidence of bibasilar infiltrates, he had ongoing fever through the night with evidence of sepsis, that appears to have resolved. White blood cell count is improved and patient feels significantly improved compared to yesterday. -Blood cultures pending -Decrease IV fluid rate to 75 mL/h -Continue levofloxacin 750 mg IV every 24 hours -Nebulizer therapy as needed CHRONIC KIDNEY DISEASE STAGE III-renal function has remained stable -Closely monitor renal function and urine output HYPERTENSION -Continue outpatient medical regimen MAINTENANCE ISSUES -DVT prophylaxis;Lovenox 40 mg subcutaneous daily -GI prophylaxis;Continue outpatient PPI therapy -Pyle catheter;Not indicated -Nutrition;Clear liquid diet -Nicotine dependence;Not required CODE STATUS-DNR/DNI ADMISSION STATUS-patient will be admitted to inpatient status, expect at least a 2 night hospital stay for evaluation and management of problems as outlined above. At the time of this admission I do not reasonably expected evaluation and management of this problem will require more than a 96 hour hospital stay. DISPOSITION-anticipate discharge to home, possibly tomorrow PRIMARY CARE PROVIDER-Dr. Lopez
[2018-02-19] MEDS ORDERED: Lactated Ringers 1,000 ML IV SCH (12:15)
[2018-02-19] MEDS: Lactobacillus Rhamnosus GG (Probiotic) Cap PO SCH ×2 (14:11→20:04)
[2018-02-19] MEDS ORDERED: Levofloxacin/Dextrose 5%-Water 750 MG in Premix Bag 1 BAG IV SCH (16:00)
[2018-02-19] MEDS ORDERED: Enoxaparin 40 MG/0.4 ML Syringe SUBCUT SCH (18:00)
[2018-02-19] MEDS: atorvaSTATin 20 MG Tab PO SCH (20:05)
[2018-02-20] MEDS: Pantoprazole 40 MG Tab.CR PO SCH (07:34)
[2018-02-20] MEDS ORDERED: Potassium Chloride 40 MEQ in Premix Bag 1 BAG IV ONE (08:06)
[2018-02-20] MEDS ORDERED: Potassium Chloride 20 MEQ Tab.ER PO ONE (08:15)
[2018-02-20] MEDS: SAW PALMETTO (PTOM) PO SCH (09:48)
[2018-02-20] MEDS: Magnesium Oxide 400 MG Tab PO SCH (09:48)
[2018-02-20] MEDS: Lactobacillus Rhamnosus GG (Probiotic) Cap PO SCH (09:48)
[2018-02-20] MEDS: Aspirin 325 MG Tab.EC PO SCH (09:48)
[2018-02-20] MEDS: Oxybutynin 5 MG Tab PO SCH ×2 (09:48→14:59)
[2018-02-20] MEDS: Tamsulosin 0.4 MG Cap.ER PO SCH (09:48)
[2018-02-20] MEDS: Potassium Chloride 20 MEQ, Lidocaine 1% 2 ML in Sodium Chloride 0.9% 100 ML IV SCH ×2 (09:54→12:43)
--- NOTE | 2018-02-20 14:05 | PCM.DCSUM1 ---
Discharge Summary - Hospital Course Brief History: Mr. Moreno is an 82-year-old gentleman who was admitted through the emergency department with shortness of breath, cough, and weakness secondary to pneumonia, with early sepsis. - Discharge Data Discharge Date: 02/20/18 Discharge Disposition: Home, Self-Care 01 Condition: Fair - Discharge Diagnosis/Problem(s) (1) Pneumonia SNOMED Code(s): 273504463 ICD Code: J18.9 - PNEUMONIA, UNSPECIFIED ORGANISM Status: Acute Current Visit: Yes (2) Sepsis SNOMED Code(s): 57838821 ICD Code: A41.9 - SEPSIS, UNSPECIFIED ORGANISM Status: Acute Current Visit: Yes Qualifiers: Sepsis type: sepsis due to unspecified organism Qualified Code(s): A41.9 - Sepsis, unspecified organism (3) CKD (chronic kidney disease) stage 3, GFR 30-59 ml/min SNOMED Code(s): 676768306 ICD Code: N18.3 - CHRONIC KIDNEY DISEASE, STAGE 3 (MODERATE) Status: Acute Current Visit: Yes - Patient Summary/Data Hospital Course: Mr. Rios is an 82-year-old gentleman who was admitted through the emergency department with a febrile illness and early sepsis. He felt well until the morning of admission when he noted onset of significant weakness associated with nausea and vomiting. During this period time is also had a temperature elevation. Because of symptoms he presented to the emergency department for further evaluation. White blood cell count was found to be elevated and he has had a documented temperature elevation while in the emergency department. Nausea and vomiting have improved after hydration and anti-emetic therapy. Chest x-ray shows no obvious infiltrates and urinalysis is unremarkable for infection. Heart rate was elevated on admission but has improved with IV hydration. Lactic acid level is slightly elevated. No other obvious source of infection has been identified on physical examination or by history. After admission he did have difficulty with hypotension as well as recurrent temperature elevations and was felt to have early sepsis. He was treated with vigorous IV fluid replacement as well as ongoing antibiotic therapy with levofloxacin. Blood cultures have been obtained in the emergency department and remained negative up until the time of discharge. Influenza A and B antigens were also obtained and found to be negative. By the following morning he was feeling significantly improved with better energy and less shortness of breath. Blood pressures stabilized and IV fluids were discontinued. On the morning of discharge was feeling well with no symptoms of significant shortness of breath, cough, or weakness. Follow-up chest x-ray had been obtained after hydration it did show evidence of pulmonary infiltrate, felt to be the source of infection and sepsis. He will be discharged home on additional 3 days of oral antibiotic therapy with levofloxacin. Activity will be as tolerated and he will resume his usual diet. Follow-up appointment will be scheduled with his primary care provider within one week, follow-up chest x-ray should be obtained at that time as well. - Patient Instructions Diet: Usual Diet as Tolerated Activity: As Tolerated Other/Special Instructions: Please schedule follow-up appointment with Dr. Clemons within one week. Follow-up chest x-ray should be obtained at the time of that appointment. - Discharge Plan Prescriptions/Med Rec: Levofloxacin [Levaquin] 750 mg PO DAILY #3 tab Home Medications: Home Meds Lisinopril 5 mg PO BEDTIME 09/17/13 [History] Omeprazole 20 mg PO BEDTIME 09/17/13 [History] Tamsulosin HCl 0.8 mg PO DAILY 09/17/13 [History] atorvaSTATin [Lipitor] 20 mg PO BEDTIME 09/17/13 [History] Aspirin [Ecotrin] 325 mg PO DAILY 09/15/15 [History] Atenolol 50 mg PO DAILY 09/15/15 [History] [place]-3 Fatty Acids [Fish Oil] 1,000 mg PO DAILY 03/23/16 [History] Saw [place] 900 mg PO DAILY 03/23/16 [History] Nitroglycerin [Nitrostat] 0.4 mg SL ASDIRECTED PRN 12/04/16 [History] Oxybutynin Chloride [Oxybutynin Chloride ER] 15 mg PO DAILY 02/19/18 [History] Levofloxacin [Levaquin] 750 mg PO DAILY #3 tab 02/20/18 [Rx] Referrals: Luther Lopez MD [Primary Care Provider] - - Discharge Summary/Plan Comment DC Time >30 min.: No - Patient Data Vitals - Most Recent: Last Vital Signs Temp 98.8 F 02/20/18 11:00 Pulse 71 02/20/18 11:00 Resp 18 02/20/18 11:00 BP 128/99 H 02/20/18 11:00 Pulse Ox 97 02/20/18 11:00 Weight - Most Recent: 162 lb 7.691 oz I&O - Last 24 hours: Intake & Output 02/19/18 02/20/18 02/20/18 22:59 06:59 14:59 Intake Total 1904 1479 824 Output Total 1527 6595 1275 Balance 379 54 -451 Lab Results - Last 24 hrs: Laboratory Results - last 24 hr 02/20/18 02/20/18 Range/Units 05:40 05:40 WBC 11.1 H (4.5-11.0) K/uL RBC 3.57 L (4.30-5.90) M/uL Hgb 11.9 L (12.0-15.0) g/dL Hct 35.0 L (40.0-54.0) % MCV 98 (80-98) fL MCH 33 H (27-31) pg MCHC 34 (32-36) % Plt Count 109 L (150-400) K/uL Neut % (Auto) 40 (36-66) % Lymph % (Auto) 53 H (24-44) % [place] % (Auto) 7 H (2-6) % Eos % (Auto) 1 L (2-4) % Baso % (Auto) 0 (0-1) % Sodium 140 (140-148) mmol/L Potassium 3.1 L (3.6-5.2) mmol/L Chloride 108 (100-108) mmol/L Carbon Dioxide 23 (21-32) mmol/L Anion Gap 12.1 (5.0-14.0) mmol/L BUN 13 (7-18) mg/dL Creatinine 0.9 (0.8-1.3) mg/dL Est Cr Clr Drug Dosing 63.33 mL/min Estimated GFR (MDRD) > 60 (>60) Glucose 89 (74-106) mg/dL Calcium 7.4 L (8.5-10.1) mg/dL Magnesium 2.1 (1.8-2.4) mg/dL SHAKILA Results - Last 24 hrs: Microbiology 02/18/18 15:00 Aerobic Blood Culture - Preliminary Blood - Venous NO GROWTH AFTER 1 DAY Anaerobic Blood Culture - Preliminary NO GROWTH AFTER 1 DAY 02/18/18 14:10 Aerobic Blood Culture - Preliminary Blood - Venous NO GROWTH AFTER 1 DAY Anaerobic Blood Culture - Preliminary NO GROWTH AFTER 1 DAY Med Orders - Current: Current Medications Acetaminophen (Tylenol) 650 mg PO Q4H PRN PRN Reason: Pain (Mild 1-3)/fever Last Admin: 02/18/18 19:57 Dose: 650 mg Albuterol (Proventil Neb Soln) 2.5 mg NEB Q4H PRN PRN Reason: Shortness Of Breath/wheezing Aspirin (Ecotrin) 325 mg PO DAILY [facility] Last Admin: 02/20/18 09:48 Dose: 325 mg Atorvastatin Calcium (Lipitor) 20 mg PO BEDTIME [facility] Last Admin: 02/19/18 20:05 Dose: 20 mg Enoxaparin Sodium (Lovenox) 40 mg SUBCUT Q24H [facility] Last Admin: 02/19/18 17:31 Dose: 40 mg Lactated Ringer's (Ringers, Lactated) 1,000 mls @ 75 mls/hr IV ASDIRECTED [facility] Last Admin: 02/20/18 11:34 Dose: 75 mls/hr Levofloxacin/Dextrose 750 mg/ (Premix) 150 mls @ 100 mls/hr IV Q24H [facility] Last Admin: 02/19/18 16:12 Dose: 100 mls/hr Lactobacillus Rhamnosus (Culturelle) 1 cap PO BID [facility] Last Admin: 02/20/18 09:48 Dose: 1 cap Magnesium Hydroxide (Milk Of Magnesia) 30 ml PO Q12H PRN PRN Reason: Constipation Magnesium Oxide (Magnesium Oxide) 400 mg PO BID [facility] Last Admin: 02/20/18 09:48 Dose: 400 mg Ondansetron HCl (Zofran) 4 mg IV Q4H PRN PRN Reason: Nausea/Vomiting Oxybutynin Chloride (Oxybutynin) 5 mg PO TID [facility] Last Admin: 02/20/18 09:48 Dose: 5 mg Oxycodone HCl (Oxycodone) 5 mg PO Q4H PRN PRN Reason: Pain (moderate 4-6) Pantoprazole Sodium (Protonix) 40 mg PO ACBREAKFAST [facility] Last Admin: 02/20/18 07:34 Dose: 40 mg Saw [place] (Ptom) 0 each PO DAILY [facility] Last Admin: 02/20/18 09:48 Dose: Not Given Polyethylene Glycol (Miralax) 17 gm PO DAILY PRN PRN Reason: Constipation Senna/Docusate Sodium (Senna Plus) 1 tab PO BID PRN PRN Reason: Constipation Sodium Chloride (Saline Flush) 10 ml FLUSH ASDIRECTED PRN PRN Reason: Keep Vein Open Tamsulosin HCl (Flomax) 0.8 mg PO DAILY [facility] Last Admin: 02/20/18 09:48 Dose: 0.8 mg Discontinued Medications Atenolol (Tenormin) 50 mg PO DAILY [facility] Enoxaparin Sodium (Lovenox) 40 mg SUBCUT DAILY [facility] Last Admin: 02/18/18 19:57 Dose: 40 mg Lactated Ringer's (Ringers, Lactated) 1,000 mls @ 1,000 mls/hr IV BOLUS ONE Stop: 02/18/18 14:59 Last Admin: 02/18/18 14:24 Dose: 1,000 mls/hr Levofloxacin/Dextrose 750 mg/ (Premix) 150 mls @ 100 mls/hr IV ONETIME ONE Stop: 02/18/18 18:09 Last Admin: 02/18/18 17:32 Dose: 100 mls/hr Lactated Ringer's (Ringers, Lactated) 1,000 mls @ 999 mls/hr IV ASDIRECTED [facility] Last Admin: 02/18/18 16:30 Dose: 999 mls/hr Lactated Ringer's (Ringers, Lactated) 1,000 mls @ 250 mls/hr IV ASDIRECTED [facility] Stop: 02/19/18 00:24 Lactated Ringer's (Ringers, Lactated) 1,000 mls @ 125 mls/hr IV ASDIRECTED [facility] Last Admin: 02/19/18 09:22 Dose: 125 mls/hr Potassium Chloride 40 meq/ (Premix) 100 mls @ 25 mls/hr IV ONETIME ONE Stop: 02/18/18 22:22 Last Admin: 02/18/18 20:14 Dose: 25 mls/hr Lactated Ringer's (Ringers, Lactated) 500 mls @ 500 mls/hr IV ONETIME ONE Stop: 02/18/18 21:33 Last Admin: 02/18/18 21:42 Dose: 500 mls/hr Lactated Ringer's (Ringers, Lactated) 500 mls @ 500 mls/hr IV .BOLUS [facility] Last Admin: 02/19/18 04:57 Dose: 500 mls/hr Lactated Ringer's (Ringers, Lactated) 500 mls @ 999 mls/hr IV .BOLUS [facility] Last Admin: 02/19/18 04:45 Dose: 999 mls/hr Magnesium Sulfate 2 gm/ Premix 50 mls @ 25 mls/hr IV ONETIME ONE Stop: 02/19/18 10:59 Last Admin: 02/19/18 09:25 Dose: 25 mls/hr Potassium Chloride 20 meq/Lidocaine HCl 2 ml/ Sodium Chloride 112 mls @ 56 mls/ hr IV Q2H [facility] Stop: 02/20/18 13:29 Last Admin: 02/20/18 12:43 Dose: 56 mls/hr Lisinopril (Prinivil) 5 mg PO BEDTIME [facility] Last Admin: 02/18/18 20:01 Dose: Not Given Metoclopramide HCl (Reglan) 10 mg IVPUSH ONETIME ONE Stop: 02/18/18 16:01 Last Admin: 02/18/18 16:08 Dose: 10 mg Ondansetron HCl (Zofran Odt) 4 mg PO ONETIME ONE Stop: 02/18/18 14:00 Last Admin: 02/18/18 14:19 Dose: 4 mg Potassium Chloride (Klor-Con M20) 40 meq PO ONETIME ONE Stop: 02/20/18 08:16 Last Admin: 02/20/18 09:48 Dose: 40 meq Sodium Chloride (Saline Flush) 10 ml FLUSH ASDIRECTED PRN PRN Reason: Keep Vein Open Last Admin: 02/18/18 14:25 Dose: 10 ml - Exam Quality Assessment: Reports: DVT Prophylaxis General: Reports: Alert, Oriented, Cooperative, No Acute Distress Lungs: Reports: Clear to Auscultation, Normal Respiratory Effort Cardiovascular: Reports: Regular Rate, Regular Rhythm, No Murmurs GI/Abdominal Exam: Soft, Non-Tender, No Organomegaly, No Distention
[2018-02-20 14:29] VITALS: BP 121/65
--- NOTE | 2018-02-21 08:58 | CR ---
Chest 2V INDICATION: Fever, follow-up after hydration COMPARISON: 02/18/2018 FINDINGS: Two views. Heart size normal. Linear infiltrate or atelectasis right base increased slig htly. There is also focal infiltrate or atelectasis at the left base, unchanged. No pleural effusions .
== END 2018-02-20 16:00 | disposition home or self-care (01) | DRG 871 ==
LOC: JP.ED 13:25 → JP.MS 17:41
PROVIDERS: ADMIT Hospitalist; ATTEND Hospitalist
DX: A41.9 Sepsis, unspecified organism (principal); D72.829 Elevated white blood cell count, unspecified; J18.9 Pneumonia, unspecified organism; I12.9 Hypertensive chronic kidney disease with stage 1 through stage 4 chronic kidney disease, or unspecified chronic kidney disease; N18.3 Chronic kidney disease, stage 3 (moderate); R40.1 Stupor; R11.2 Nausea with vomiting, unspecified; R50.9 Fever, unspecified; Z66 Do not resuscitate; I25.10 Atherosclerotic heart disease of native coronary artery without angina pectoris; E78.00 Pure hypercholesterolemia, unspecified; M19.90 Unspecified osteoarthritis, unspecified site; Z95.5 Presence of coronary angioplasty implant and graft; H54.7 Unspecified visual loss; H91.90 Unspecified hearing loss, unspecified ear; Z79.82 Long term (current) use of aspirin; N42.9 Disorder of prostate, unspecified
CPT/HCPCS: 36415; 71045 ×2; 74018 ×2; 80048; 81001; 83605; 85027; 87040 ×2; 96361; 96374; 96375; 99285; A9270; J1956; J2765; J7050; J7120 ×2; 71046; 71046-26; 80053; 83690; 83735; 85025; 85651; 86140; 87804; 87804-59; J1650; J3475; J3480; J7030

== ENCOUNTER 2018-03-02 06:01 | Emergency (ER) | payer MEDICARE, BC ==
[2018-03-02 06:28] VITALS: BP 91/51
--- NOTE | 2018-03-02 06:51 | EDM.PDOC ---
ED HPI GENERAL MEDICAL PROBLEM - General Chief Complaint: Respiratory Problem Stated Complaint: FLU Time Seen by Provider: 03/02/18 06:40 Source of Information: Reports: Patient, Family History Limitations: Reports: No Limitations - History of Present Illness INITIAL COMMENTS - FREE TEXT/NARRATIVE: 83-year-old male was in the hospital for 3 days within the last 2 weeks for a febrile illness and possible pneumonia. He's been on 750 mg of Levaquin daily, took his last dose yesterday and had a scheduled recheck with his primary provider at 3 PM today to give him the "all clear". Last night at bedtime he developed generalized body aches, then he ran a fever for several hours chills and his had to put cool compresses on his forehead. This morning he just feels rundown and achy, no real shortness of breath and his fever is broken. He is very concerned he has redeveloped pneumonia. Onset: Sudden (Symptoms developed suddenly last evening) Associated Symptoms: Reports: Fever/Chills, Malaise, Weakness. Denies: Headaches - Related Data Allergies Allergy/AdvReac Type Severity Reaction Status Date / Time No Known Allergies Allergy Verified 03/02/18 06:25 Home Meds: Home Meds Lisinopril 5 mg PO BEDTIME 09/17/13 [History] Omeprazole 20 mg PO BEDTIME 09/17/13 [History] Tamsulosin HCl 0.8 mg PO DAILY 09/17/13 [History] atorvaSTATin [Lipitor] 20 mg PO BEDTIME 09/17/13 [History] Aspirin [Ecotrin] 325 mg PO DAILY 09/15/15 [History] Atenolol 50 mg PO DAILY 09/15/15 [History] [place]-3 Fatty Acids [Fish Oil] 1,000 mg PO DAILY 03/23/16 [History] Saw [place] 900 mg PO DAILY 03/23/16 [History] Nitroglycerin [Nitrostat] 0.4 mg SL ASDIRECTED PRN 12/04/16 [History] Oxybutynin Chloride [Oxybutynin Chloride ER] 15 mg PO DAILY 02/19/18 [History] Levofloxacin [Levaquin] 750 mg PO DAILY #3 tab 02/20/18 [Rx] Past Medical History - Past Health History Medical/Surgical History: Denies Medical/Surgical History HEENT History: Reports: Cataract, Hard of Hearing, Impaired Vision Other HEENT History: astigmatism; tinnitus Cardiovascular History: Reports: CAD, High Cholesterol, Hypertension, Stents Gastrointestinal History: Reports: Colon Polyp, Diverticulosis, Irritable Bowel Syndrome Other Gastrointestinal History: Patient states, "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 Genitourinary History: Reports: Prostate Disorder, Renal Calculus, Retention, Urinary Musculoskeletal History: Reports: Fracture, Osteoarthritis Neurological History: Reports: Migraines Dermatologic History: Reports: Psoriasis, Urticaria - Infectious Disease History Infectious Disease History: Reports: Chicken Pox, Measles, Mumps, Rubella - Past Surgical History Cardiovascular Surgical History: Reports: Coronary Artery Stent, Percutaneous Transluminal Angioplasty GI Surgical History: Reports: Colonoscopy, EGD, Hernia, Inguinal, Hernia Repair/ Other Musculoskeletal Surgical History: Reports: Arthroscopic Knee, Arthroscopic Procedure, Shoulder Surgery Social & Family History - Family History Family Medical History: Noncontributory Oncologic: Reports: Colon, Lung - Tobacco Use Smoking Status *Q: Never Smoker - Caffeine Use Caffeine Use: Reports: Coffee Caffeine Use Comment: 1 cup per day - Recreational Drug Use Recreational Drug Use: No ED ROS GENERAL - Review of Systems Review Of Systems: See Below Constitutional: Reports: Fever, Chills, Malaise HEENT: Denies: Throat Swelling Respiratory: Denies: Shortness of Breath, Cough Cardiovascular: Denies: Chest Pain Endocrine: Reports: Fatigue GI/Abdominal: Denies: Abdominal Pain, Nausea, Vomiting : Reports: No Symptoms Musculoskeletal: Reports: Muscle Pain (Generalized muscle aching) Skin: Denies: Rash Neurological: Denies: Headache ED EXAM, GENERAL - Physical Exam Exam: See Below Exam Limited By: No Limitations General Appearance: Alert, No Apparent Distress Eye Exam: Bilateral Eye: Normal Inspection Head: Atraumatic Respiratory/Chest: Crackles (Patient has a few rales and crackles at the extreme bases bilaterally) Cardiovascular: Regular Rate, Rhythm. No: Tachycardia GI/Abdominal: Non-Tender Extremities: Normal Inspection. No: Pedal Edema Neurological: Alert, Oriented Psychiatric: Flat Affect Skin Exam: Warm, Dry Course - Vital Signs Last Recorded V/S: Last Vital Signs Temp 98.4 F 03/02/18 06:26 Pulse 85 03/02/18 06:26 Resp 22 H 03/02/18 06:26 BP 91/51 L 03/02/18 06:26 Pulse Ox 92 L 03/02/18 06:26 - Re-Assessments/Exams Free Text/Narrative Re-Assessment/Exam: 03/02/18 06:50 Two-view chest x-ray was obtained to compare to the x-ray taken while in the hospital. Chest x-ray was normal, infiltrates of clear. Patient continued to feel somewhat weak but was able to get up and ambulate without a problem, remained afebrile so will recheck as scheduled with Dr. Lopez at 3 PM. Departure - Departure Time of Disposition: 07:19 Disposition: Home, Self-Care 01 Condition: Good Clinical Impression: Weakness Pneumonia Qualifiers: Aspiration pneumonia type: unspecified Laterality: bilateral Lung location: lower lobe of lung - Discharge Information Instructions: Weakness Referrals: PCP,None [Primary Care Provider] - Forms: ED Department Discharge Care Plan Goals: Activity as tolerated today, and recheck with Dr. Lopez at 3:00 as scheduled.
--- NOTE | 2018-03-02 09:11 | CR ---
Chest 2V FINDINGS: The heart and vascular structures are normal in appearance. No infiltrates or effusions are demonstrated. The skeletal structures are unremarkable. IMPRESSION: Negative exam.
== END 2018-03-02 07:19 | disposition home or self-care (01) ==
LOC: JP.ED 06:01
DX: J18.9 Pneumonia, unspecified organism (principal); R53.1 Weakness; I10 Essential (primary) hypertension; E78.00 Pure hypercholesterolemia, unspecified; M19.90 Unspecified osteoarthritis, unspecified site; Z79.899 Other long term (current) drug therapy
CPT/HCPCS: 71046; 71046-26; 99284

== ENCOUNTER 2019-02-27 09:26 | Emergency (ER) | payer MEDICARE ==
[2019-02-27 09:53] VITALS: BP 109/44
--- NOTE | 2019-02-27 10:23 | EDM.PDOC ---
ED HPI GENERAL MEDICAL PROBLEM - General Chief Complaint: General Stated Complaint: HEART BEET WITH A BUZZ??? Time Seen by Provider: 02/27/19 10:13 Source of Information: Reports: Patient, Family, Old Records, RN Notes Reviewed History Limitations: Reports: No Limitations - History of Present Illness INITIAL COMMENTS - FREE TEXT/NARRATIVE: 84-year-old gentleman presents emergency department today complaint of "buzzing in the chest" this gentleman has known history of lymphoma states he awoke this morning and during breakfast he felt palpitations in his chest he can still feel them now there is no nausea no vomiting no shortness of breath no chest pain - Related Data Allergies Allergy/AdvReac Type Severity Reaction Status Date / Time No Known Allergies Allergy Verified 02/27/19 09:53 Home Meds: Home Meds Lisinopril 5 mg PO BEDTIME 09/17/13 [History] Omeprazole 20 mg PO BEDTIME 09/17/13 [History] atorvaSTATin [Lipitor] 20 mg PO BEDTIME 09/17/13 [History] Aspirin [Ecotrin] 325 mg PO DAILY 09/15/15 [History] [place]-3 Fatty Acids [Fish Oil] 1,000 mg PO DAILY 03/23/16 [History] Saw [place] 900 mg PO DAILY 03/23/16 [History] Nitroglycerin [Nitrostat] 0.4 mg SL ASDIRECTED PRN 12/04/16 [History] Oxybutynin Chloride [Oxybutynin Chloride ER] 15 mg PO DAILY 02/19/18 [History] Metoprolol Succinate 50 mg PO DAILY 02/27/19 [History] Past Medical History HEENT History: Reports: Cataract, Hard of Hearing, Impaired Vision Other HEENT History: astigmatism; tinnitus Cardiovascular History: Reports: CAD, High Cholesterol, Hypertension, Stents Gastrointestinal History: Reports: Colon Polyp, Diverticulosis, Irritable Bowel Syndrome Other Gastrointestinal History: Patient states, "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 Genitourinary History: Reports: Prostate Disorder, Renal Calculus, Retention, Urinary Musculoskeletal History: Reports: Fracture, Osteoarthritis Neurological History: Reports: Migraines Dermatologic History: Reports: Psoriasis, Urticaria - Infectious Disease History Infectious Disease History: Reports: Chicken Pox, Measles, Mumps, Rubella - Past Surgical History Cardiovascular Surgical History: Reports: Coronary Artery Stent, Percutaneous Transluminal Angioplasty GI Surgical History: Reports: Colonoscopy, EGD, Hernia, Inguinal, Hernia Repair/ Other Male Surgical History: Reports: TURP-Transurethral Resection of Prostate Musculoskeletal Surgical History: Reports: Arthroscopic Knee, Arthroscopic Procedure, Shoulder Surgery Social & Family History - Family History Family Medical History: Noncontributory Oncologic: Reports: Colon, Lung - Tobacco Use Smoking Status *Q: Never Smoker - Caffeine Use Caffeine Use: Reports: Coffee Caffeine Use Comment: 1 cup per day - Recreational Drug Use Recreational Drug Use: No ED ROS GENERAL - Review of Systems Review Of Systems: See Below Constitutional: Denies: Diaphoresis HEENT: Reports: No Symptoms Respiratory: Reports: No Symptoms Cardiovascular: Reports: Palpitations. Denies: Chest Pain GI/Abdominal: Reports: No Symptoms : Reports: No Symptoms Musculoskeletal: Reports: No Symptoms ED EXAM, GENERAL - Physical Exam Exam: See Below Exam Limited By: No Limitations General Appearance: Alert, WD/WN, No Apparent Distress Head: Atraumatic, Normocephalic Neck: Normal Inspection, Supple, Non-Tender, Full Range of Motion Respiratory/Chest: No Respiratory Distress, Lungs Clear, Normal Breath Sounds, No Accessory Muscle Use, Chest Non-Tender Cardiovascular: Regular Rate, Rhythm, No Murmur GI/Abdominal: Soft, Non-Tender Back Exam: Normal Inspection, Full Range of Motion. No: CVA Tenderness (R), CVA Tenderness (L) Course - Vital Signs Last Recorded V/S: Last Vital Signs Temp 97.2 F 02/27/19 09:51 Pulse 66 02/27/19 09:51 Resp 17 02/27/19 09:51 BP 109/44 L 02/27/19 09:51 Pulse Ox 95 02/27/19 09:51 - Orders/Labs/Meds Orders: Active Orders 24 hr Category Date Time Status Cardiac Monitoring [RC] .As Directed Care 02/27/19 10:21 Active EKG Documentation Completion [RC] ASDIRECTED Care 02/27/19 10:21 Active EKG 12 Lead [EK] Stat Ther 02/27/19 10:21 Ordered Labs: Laboratory Tests 02/27/19 02/27/19 Range/Units 10:33 10:33 WBC 9.2 (4.5-11.0) K/uL RBC 3.63 L (4.30-5.90) M/uL Hgb 12.0 (12.0-15.0) g/dL Hct 36.0 L (40.0-54.0) % MCV 99 H (80-98) fL MCH 33 H (27-31) pg MCHC 33 (32-36) % Plt Count 121 L (150-400) K/uL Neut % (Auto) 30 L (36-66) % Lymph % (Auto) 59 H (24-44) % [place] % (Auto) 9 H (2-6) % Eos % (Auto) 2 (2-4) % Baso % (Auto) 0 (0-1) % Sodium 140 (140-148) mmol/L Potassium 4.4 (3.6-5.2) mmol/L Chloride 106 (100-108) mmol/L Carbon Dioxide 27 (21-32) mmol/L Anion Gap 7.1 (5.0-14.0) mmol/L BUN 19 H (7-18) mg/dL Creatinine 1.1 (0.8-1.3) mg/dL Est Cr Clr Drug Dosing 50.09 mL/min Estimated GFR (MDRD) > 60 (>60) Glucose 104 (74-106) mg/dL Calcium 8.9 D (8.5-10.1) mg/dL Total Bilirubin 0.5 (0.2-1.0) mg/dL AST 34 (15-37) U/L ALT 36 (12-78) U/L Alkaline Phosphatase 79 (46-116) U/L CK-MB (CK-2) 1.1 (0-3.6) mg/mL Troponin I < 0.017 (0.000-0.056) ng/mL Total Protein 5.8 L (6.4-8.2) g/dL Albumin 3.2 L (3.4-5.0) g/dL Globulin 2.6 (2.3-3.5) g/dL Albumin/Globulin Ratio 1.2 (1.2-2.2) Departure - Departure Time of Disposition: 11:51 Disposition: Home, Self-Care 01 Condition: Fair Clinical Impression: Atypical chest pain - Discharge Information Instructions: Nonspecific Chest Pain Referrals: Luther Lopez MD [Primary Care Provider] - Forms: ED Department Discharge Additional Instructions: Continue with your regular medications, Please followup with your primary care provider in 3-5 days if not better, please call return to the emergency department with worsening of symptoms. - My Orders Last 24 Hours: My Active Orders 02/27/19 10:21 Cardiac Monitoring [RC] .As Directed EKG Documentation Completion [RC] ASDIRECTED EKG 12 Lead [EK] Stat - Assessment/Plan Last 24 Hours: My Active Orders 02/27/19 10:21 Cardiac Monitoring [RC] .As Directed EKG Documentation Completion [RC] ASDIRECTED EKG 12 Lead [EK] Stat Plan: Assessment Acuity = acute Site and laterality = atypical chest pain Etiology = unclear etiology Manifestations = none Location of injury = Home Lab values = CBC, CMP, troponin all negative EKG demonstrates left bundle- branch block this is not new at his prior EKGs, chest x-ray shows no acute process Plan I did review lab work EKG results with him he feels the buzzing in his chest has improved with no treatment at this time. Elected to do watchful waiting follow-up primary care 3-5 days if not better This note was dictated using [employer] voice recognition software please call with any questions on syntax or grammar.
--- NOTE | 2019-02-27 10:47 | CR ---
CHEST: 2 view CLINICAL HISTORY:Chest pain COMPARISON:2018 FINDINGS: There is less than optimal inspiration. Heart size pulmonary vascular are normal. There is some patchy density in both lower lobes. This may represent patchy atelectasis or pneumonic infiltrate. No effusions are identified.. Impression: Patchy bibasal densities. This may represent patchy atelectasis exaggerated by poor inspiratory level. Pneumonic infiltrates are not excluded
== END 2019-02-27 12:16 | disposition home or self-care (01) ==
LOC: JP.ED 09:26
DX: R07.89 Other chest pain (principal); I25.10 Atherosclerotic heart disease of native coronary artery without angina pectoris; E78.00 Pure hypercholesterolemia, unspecified; I10 Essential (primary) hypertension; Z95.5 Presence of coronary angioplasty implant and graft; Z79.899 Other long term (current) drug therapy
CPT/HCPCS: 36415; 71046; 71046-26; 80053; 82553; 84484; 85025; 93005; 99283; 99284-25

== ENCOUNTER 2019-05-20 12:21 | Emergency (ER) | payer MEDICARE ==
[2019-05-20] MEDS ORDERED: Sodium Chloride 0.9% 1,000 ML IV SCH (13:45)
--- NOTE | 2019-05-20 13:59 | EDM.PDOC ---
ED HPI GENERAL MEDICAL PROBLEM - General Chief Complaint: Fever Stated Complaint: FEVER, RERCIEVING CHEMO TREATMENT Time Seen by Provider: 05/20/19 13:59 Source of Information: Reports: Patient History Limitations: Reports: No Limitations - History of Present Illness INITIAL COMMENTS - FREE TEXT/NARRATIVE: pt has known folicular lymphoma and he received his first dose of chemo about 10 days ago, He also received a shot to stimulate the bone Marrow/ He spiked a temp of 102 at home. Onset: Other (last 2 days. ) Duration: Hour(s): Location: Reports: Generalized Associated Symptoms: Reports: No Other Symptoms - Related Data Allergies Allergy/AdvReac Type Severity Reaction Status Date / Time No Known Allergies Allergy Verified 02/27/19 09:53 Home Meds: Home Meds Lisinopril 5 mg PO BEDTIME 09/17/13 [History] Omeprazole 20 mg PO BEDTIME 09/17/13 [History] atorvaSTATin [Lipitor] 20 mg PO BEDTIME 09/17/13 [History] Aspirin [Ecotrin] 325 mg PO DAILY 09/15/15 [History] Nitroglycerin [Nitrostat] 0.4 mg SL ASDIRECTED PRN 12/04/16 [History] Oxybutynin Chloride [Oxybutynin Chloride ER] 15 mg PO DAILY 02/19/18 [History] Metoprolol Succinate 50 mg PO DAILY 02/27/19 [History] Allopurinol [Zyloprim] 100 mg PO DAILY 05/20/19 [History] Prochlorperazine [Compazine] 10 mg PO DAILY PRN 05/20/19 [History] Past Medical History - Past Health History Medical/Surgical History: Denies Medical/Surgical History HEENT History: Reports: Cataract, Hard of Hearing, Impaired Vision Other HEENT History: astigmatism; tinnitus Cardiovascular History: Reports: CAD, High Cholesterol, Hypertension, Stents Gastrointestinal History: Reports: Colon Polyp, Diverticulosis, Irritable Bowel Syndrome Other Gastrointestinal History: Patient states, "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 Genitourinary History: Reports: Prostate Disorder, Renal Calculus, Retention, Urinary Musculoskeletal History: Reports: Fracture, Osteoarthritis Neurological History: Reports: Migraines Oncologic (Cancer) History: Reports: Leukemia Dermatologic History: Reports: Psoriasis, Urticaria - Infectious Disease History Infectious Disease History: Reports: Chicken Pox, Measles, Mumps, Rubella - Past Surgical History Cardiovascular Surgical History: Reports: Coronary Artery Stent, Percutaneous Transluminal Angioplasty GI Surgical History: Reports: Colonoscopy, EGD, Hernia, Inguinal, Hernia Repair/ Other Male Surgical History: Reports: TURP-Transurethral Resection of Prostate Musculoskeletal Surgical History: Reports: Arthroscopic Knee, Arthroscopic Procedure, Shoulder Surgery Social & Family History - Family History Family Medical History: Noncontributory Oncologic: Reports: Colon, Lung - Tobacco Use Smoking Status *Q: Never Smoker - Caffeine Use Caffeine Use: Reports: Coffee Caffeine Use Comment: 1 cup per day - Recreational Drug Use Recreational Drug Use: No ED ROS GENERAL - Review of Systems Review Of Systems: See Below Constitutional: Reports: Fever, Chills, Malaise HEENT: Reports: No Symptoms Respiratory: Reports: No Symptoms Cardiovascular: Reports: No Symptoms Endocrine: Reports: No Symptoms GI/Abdominal: Reports: No Symptoms : Reports: No Symptoms, Frequency Musculoskeletal: Reports: No Symptoms Skin: Reports: No Symptoms ED EXAM, SEPSIS - Physical Exam Exam: See Below Text/Narrative:: pt arrived with a fever. He just had his first dose of chemo this week. Exam Limited By: No Limitations General Appearance: Alert, No Apparent Distress, Anxious Ears: Normal TMs Nose: Normal Inspection Throat/Mouth: Normal Inspection Head: Atraumatic Neck: Normal Inspection Respiratory/Chest: No Respiratory Distress Cardiovascular: Regular Rate, Rhythm GI/Abdominal Exam: Soft, Non-Tender (Male) Exam: Deferred Rectal (Males) Exam: Deferred Back: Normal Inspection Extremities: Normal Inspection Neurological: Alert, Oriented Psychiatric: Normal Affect Course - Vital Signs Last Recorded V/S: Last Vital Signs Temp 37.7 C 05/20/19 16:13 Pulse 88 05/20/19 16:13 Resp 16 05/20/19 16:13 BP 101/60 05/20/19 16:13 Pulse Ox 93 L 05/20/19 16:13 - Orders/Labs/Meds Orders: Active Orders 24 hr Category Date Time Status CLOSTRIDIUM DIFFICILE BY PCR [RM] Stat Lab 05/20/19 13:46 Ordered CULTURE BLOOD [BC] Urgent Lab 05/20/19 14:45 Received CULTURE BLOOD [BC] Urgent Lab 05/20/19 14:55 Received Sodium Chloride 0.9% [Normal Saline] 1,000 ml Med 05/20/19 13:45 Active IV ASDIRECTED Blood Culture x2 Reflex Set [OM.PC] Urgent Oth 05/20/19 14:42 Ordered Isolation [COMM] Stat Oth 05/20/19 13:46 Ordered Medication Orders Sodium Chloride (Normal Saline) 1,000 mls @ 999 mls/hr IV ASDIRECTED VISHAL Last Admin: 05/20/19 14:11 Dose: 999 mls/hr Labs: Laboratory Tests 05/20/19 05/20/19 05/20/19 Range/Units 13:54 13:54 13:59 WBC 17.2 H (4.5-11.0) K/uL RBC 3.92 L (4.30-5.90) M/uL Hgb 12.8 (12.0-15.0) g/dL Hct 38.8 L (40.0-54.0) % MCV 99 H (80-98) fL MCH 33 H (27-31) pg MCHC 33 (32-36) % Plt Count 109 L (150-400) K/uL Add Manual Diff Yes Neutrophils % (Manual) 76 H (36-66) % Band Neutrophils % 16 H (5-11) % Lymphocytes % (Manual) 4 L (24-44) % Monocytes % (Manual) 2 (2-6) % Eosinophils % (Manual) 2 (2-4) % Sodium 133 L (140-148) mmol/L Potassium 4.4 (3.6-5.2) mmol/L Chloride 98 L (100-108) mmol/L Carbon Dioxide 24 (21-32) mmol/L Anion Gap 15.4 H (5.0-14.0) mmol/L BUN 15 (7-18) mg/dL Creatinine 1.1 (0.8-1.3) mg/dL Est Cr Clr Drug Dosing 50.09 mL/min Estimated GFR (MDRD) > 60 (>60) Glucose 113 H (74-106) mg/dL Lactic Acid 1.7 (0.4-2.0) mmol/L Calcium 8.8 (8.5-10.1) mg/dL Total Bilirubin 0.7 (0.2-1.0) mg/dL AST 25 (15-37) U/L ALT 28 (12-78) U/L Alkaline Phosphatase 150 H D (46-116) U/L C-Reactive Protein (0.0-0.3) mg/dL Total Protein 6.4 (6.4-8.2) g/dL Albumin 3.1 L (3.4-5.0) g/dL Globulin 3.3 (2.3-3.5) g/dL Albumin/Globulin Ratio 0.9 L (1.2-2.2) Urine Color Urine Appearance Urine pH (4.5-8.0) Ur Specific Humphreys (1.008-1.030) Urine Protein (NEGATIVE) mg/dL Urine Glucose (UA) (NEGATIVE) mg/dL Urine Ketones (NEGATIVE) mg/dL Urine Occult Blood (NEGATIVE) Urine Nitrite (NEGAITVE) Urine Bilirubin (NEGATIVE) Urine Urobilinogen (NORMAL) mg/dL Ur Leukocyte Esterase (NEGATIVE) Urine RBC (0-5) Urine WBC (0-5) Ur Epithelial Cells Amorphous Sediment Urine Bacteria Urine Mucus 05/20/19 05/20/19 Range/Units 14:31 15:39 WBC (4.5-11.0) K/uL RBC (4.30-5.90) M/uL Hgb (12.0-15.0) g/dL Hct (40.0-54.0) % MCV (80-98) fL MCH (27-31) pg MCHC (32-36) % Plt Count (150-400) K/uL Add Manual Diff Neutrophils % (Manual) (36-66) % Band Neutrophils % (5-11) % Lymphocytes % (Manual) (24-44) % Monocytes % (Manual) (2-6) % Eosinophils % (Manual) (2-4) % Sodium (140-148) mmol/L Potassium (3.6-5.2) mmol/L Chloride (100-108) mmol/L Carbon Dioxide (21-32) mmol/L Anion Gap (5.0-14.0) mmol/L BUN (7-18) mg/dL Creatinine (0.8-1.3) mg/dL Est Cr Clr Drug Dosing mL/min Estimated GFR (MDRD) (>60) Glucose (74-106) mg/dL Lactic Acid (0.4-2.0) mmol/L Calcium (8.5-10.1) mg/dL Total Bilirubin (0.2-1.0) mg/dL AST (15-37) U/L ALT (12-78) U/L Alkaline Phosphatase (46-116) U/L C-Reactive Protein 2.68 H (0.0-0.3) mg/dL Total Protein (6.4-8.2) g/dL Albumin (3.4-5.0) g/dL Globulin (2.3-3.5) g/dL Albumin/Globulin Ratio (1.2-2.2) Urine Color Yellow Urine Appearance Clear Urine pH 6.0 (4.5-8.0) Ur Specific Humphreys 1.010 (1.008-1.030) Urine Protein Trace (NEGATIVE) mg/dL Urine Glucose (UA) Normal (NEGATIVE) mg/dL Urine Ketones Negative (NEGATIVE) mg/dL Urine Occult Blood Trace (NEGATIVE) Urine Nitrite Negative (NEGAITVE) Urine Bilirubin Negative (NEGATIVE) Urine Urobilinogen Normal (NORMAL) mg/dL Ur Leukocyte Esterase Negative (NEGATIVE) Urine RBC 0-5 (0-5) Urine WBC 0-5 (0-5) Ur Epithelial Cells Rare Amorphous Sediment Not seen Urine Bacteria Few Urine Mucus Not seen Meds: Medications Generic Name Dose Route Start Last Admin Trade Name Freq PRN Reason Stop Dose Admin Sodium Chloride 1,000 mls @ 999 mls/hr 05/20/19 13:45 05/20/19 14:11 Normal Saline IV 999 mls/hr ASDIRECTED VISHAL Administration Discontinued Medications Generic Name Dose Route Start Last Admin Trade Name Freq PRN Reason Stop Dose Admin Ceftriaxone Sodium 1 gm/ 50 mls @ 100 mls/hr 05/20/19 16:53 05/20/19 17:11 Sodium Chloride IV 05/20/19 17:22 100 mls/hr ONETIME ONE Administration - Re-Assessments/Exams Free Text/Narrative Re-Assessment/Exam: 05/20/19 17:26 pt had a wbc of 17,000 but his had a shot to stimulate his marrow. He had a neg urine. His chest xray showed possible early infiltrate verus ateclectasis. Blood cultures were drawn. Departure - Departure Time of Disposition: 17:03 Disposition: Home, Self-Care 01 Condition: Fair Clinical Impression: Fever and chills, Lymphoma, follicular - Discharge Information Instructions: Fever, Adult, [id number] Referrals: My Olmstead MD [Primary Care Provider] - Forms: ED Department Discharge Care Plan Goals: tylenol for fever. Will notify of the cultures --blood and urine, call oncologist on Wednesday. Send a copy of lab work with the pt. levoquin 500mg daily until cultures are back. Send a copty of all lab work, chest xray report with the pt. - My Orders Last 24 Hours: My Active Orders 05/20/19 13:45 Sodium Chloride 0.9% [Normal Saline] 1,000 ml IV ASDIRECTED 05/20/19 13:46 CLOSTRIDIUM DIFFICILE BY PCR [RM] Stat Isolation [COMM] Stat 05/20/19 14:42 Blood Culture x2 Reflex Set [OM.PC] Urgent 05/20/19 14:45 CULTURE BLOOD [BC] Urgent 05/20/19 14:55 CULTURE BLOOD [BC] Urgent - Assessment/Plan Last 24 Hours: My Active Orders 05/20/19 13:45 Sodium Chloride 0.9% [Normal Saline] 1,000 ml IV ASDIRECTED 05/20/19 13:46 CLOSTRIDIUM DIFFICILE BY PCR [RM] Stat Isolation [COMM] Stat 05/20/19 14:42 Blood Culture x2 Reflex Set [OM.PC] Urgent 05/20/19 14:45 CULTURE BLOOD [BC] Urgent 05/20/19 14:55 CULTURE BLOOD [BC] Urgent
[2019-05-20 16:14] VITALS: BP 101/60; PULSE 88
[2019-05-20] MEDS ORDERED: cefTRIAXone 1 GM in Sodium Chloride 0.9% 50 ML IV ONE (16:53)
--- NOTE | 2019-05-20 17:00 | CRLCR ---
Indication: Fever. Technique: PA and lateral views the chest were obtained. Comparison: February 27, 2019. Findings: Developing left lower lobe atelectasis and/or infiltrate. The heart is normal in size. The right lung is clear. No pleural effusion or pneumothorax is identified. Impression: Developing left lower lobe atelectasis and/or infiltrate Dictated by Jackelin Mcintosh MD @ May 20 2019 4:57PM Signed by Dr. Jackelin Mcintosh @ May 20 2019 4:58PM
== END 2019-05-20 18:00 | disposition home or self-care (01) ==
LOC: JP.ED 12:21
DX: C82.90 Follicular lymphoma, unspecified, unspecified site (principal); I10 Essential (primary) hypertension; M19.90 Unspecified osteoarthritis, unspecified site; I25.10 Atherosclerotic heart disease of native coronary artery without angina pectoris; Z79.82 Long term (current) use of aspirin; Z79.899 Other long term (current) drug therapy
CPT/HCPCS: 36415; 71046; 80053; 81001; 83605; 85025; 86140; 87040; 96361; 96365; 99284; J0696; J7030; J7050; 99283

== ENCOUNTER 2019-05-21 14:55 | Inpatient (IN) | payer MEDICARE ==
--- NOTE | 2019-05-21 16:57 | EDM.PDOC ---
ED HPI GENERAL MEDICAL PROBLEM - General Chief Complaint: Fever Stated Complaint: HIGH FEVER Time Seen by Provider: 05/21/19 16:52 Source of Information: Reports: Patient History Limitations: Reports: No Limitations - History of Present Illness INITIAL COMMENTS - FREE TEXT/NARRATIVE: pt arrived once again with a high fever and now he has a total body rash He is not itchy. He had 1 gram of rocephen in ER yesterday. He has not taken the second dose of levoquin orally. . He has a temp of 38.9 Onset: Gradual, Other (pt has been running a temp for several days. ) Duration: Hour(s): Location: Reports: Other (pt is spiking fevers. ) Associated Symptoms: Reports: Fever/Chills, Headaches, Malaise, Weakness - Related Data Allergies Allergy/AdvReac Type Severity Reaction Status Date / Time No Known Allergies Allergy Verified 05/21/19 15:46 Home Meds: Home Meds Lisinopril 5 mg PO BEDTIME 09/17/13 [History] Omeprazole 20 mg PO BEDTIME 09/17/13 [History] atorvaSTATin [Lipitor] 20 mg PO BEDTIME 09/17/13 [History] Aspirin [Ecotrin] 325 mg PO DAILY 09/15/15 [History] Nitroglycerin [Nitrostat] 0.4 mg SL ASDIRECTED PRN 12/04/16 [History] Oxybutynin Chloride [Oxybutynin Chloride ER] 15 mg PO DAILY 02/19/18 [History] Metoprolol Succinate 50 mg PO DAILY 02/27/19 [History] Allopurinol [Zyloprim] 100 mg PO DAILY 05/20/19 [History] Prochlorperazine [Compazine] 10 mg PO DAILY PRN 05/20/19 [History] Sennosides/Docusate Sodium [Senna-S] 1 each PO DAILY 05/22/19 [History] Past Medical History - Past Health History Medical/Surgical History: Denies Medical/Surgical History HEENT History: Reports: Cataract, Hard of Hearing, Impaired Vision Other HEENT History: astigmatism; tinnitus Cardiovascular History: Reports: CAD, High Cholesterol, Hypertension, Stents Gastrointestinal History: Reports: Colon Polyp, Diverticulosis, Irritable Bowel Syndrome Other Gastrointestinal History: Patient states, "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 Genitourinary History: Reports: Prostate Disorder, Renal Calculus, Retention, Urinary Musculoskeletal History: Reports: Fracture, Osteoarthritis Neurological History: Reports: Migraines Oncologic (Cancer) History: Reports: Lymphoma Dermatologic History: Reports: Psoriasis, Urticaria - Infectious Disease History Infectious Disease History: Reports: Chicken Pox, Measles, Mumps, Rubella - Past Surgical History Cardiovascular Surgical History: Reports: Coronary Artery Stent, Percutaneous Transluminal Angioplasty GI Surgical History: Reports: Colonoscopy, EGD, Hernia, Inguinal, Hernia Repair/ Other Male Surgical History: Reports: TURP-Transurethral Resection of Prostate Musculoskeletal Surgical History: Reports: Arthroscopic Knee, Arthroscopic Procedure, Shoulder Surgery Social & Family History - Family History Family Medical History: Noncontributory Oncologic: Reports: Colon, Lung - Tobacco Use Smoking Status *Q: Never Smoker - Caffeine Use Caffeine Use: Reports: None Caffeine Use Comment: 1 cup per day - Recreational Drug Use Recreational Drug Use: No ED ROS GENERAL - Review of Systems Review Of Systems: See Below Constitutional: Reports: Fever, Chills, Malaise, Other (pt spiked a temp to 102.6. He has been getting tylenol every 6 hours. ) HEENT: Reports: No Symptoms Respiratory: Reports: No Symptoms Cardiovascular: Reports: No Symptoms Endocrine: Reports: No Symptoms GI/Abdominal: Reports: No Symptoms : Reports: No Symptoms Musculoskeletal: Reports: No Symptoms Skin: Reports: Other (pt has a total body rash which is not itchy. ) Neurological: Reports: No Symptoms Psychiatric: Reports: Anxiety ED EXAM, SEPSIS - Physical Exam Exam: See Below Text/Narrative:: pt arrived because he spiked a fever again to 102.9. He is receiving tylenol around the clock every 6 hours. Exam Limited By: No Limitations General Appearance: Alert, Anxious, Mild Distress, Other (pt is covered with a rash which may be related to the rocephen he received yesterday. ) Ears: Normal TMs Nose: Normal Inspection Throat/Mouth: Normal Inspection Head: Atraumatic Neck: Normal Inspection Respiratory/Chest: No Respiratory Distress Cardiovascular: Regular Rate, Rhythm GI/Abdominal Exam: Soft, Non-Tender Rectal (Males) Exam: Deferred Back: Normal Inspection Extremities: Normal Inspection Course - Vital Signs Last Recorded V/S: Last Vital Signs Temp 37.2 C 05/23/19 03:00 Pulse 87 05/23/19 02:00 Resp 16 05/23/19 02:00 BP 102/60 05/23/19 02:00 Pulse Ox 95 05/23/19 02:00 - Orders/Labs/Meds Orders: Medication Orders Acetaminophen (Tylenol) 650 mg PO Q4H PRN PRN Reason: Pain (Mild 1-3)/fever Last Admin: 05/23/19 02:04 Dose: 650 mg Admin: 05/22/19 14:24 Dose: 650 mg Admin: 05/22/19 06:12 Dose: 650 mg Admin: 05/22/19 01:44 Dose: 650 mg Albuterol (Proventil Neb Soln) 2.5 mg NEB Q4H PRN PRN Reason: Shortness Of Breath/wheezing Allopurinol (Zyloprim) 100 mg PO DAILY [facility] Last Admin: 05/22/19 08:50 Dose: 100 mg Aspirin (Ecotrin) 325 mg PO DAILY [facility] Last Admin: 05/22/19 08:48 Dose: 325 mg Atorvastatin Calcium (Lipitor) 20 mg PO BEDTIME [facility] Last Admin: 05/22/19 21:04 Dose: 20 mg Admin: 05/21/19 21:03 Dose: 20 mg Diphenhydramine HCl (Benadryl) 25 mg PO Q4H PRN PRN Reason: Itching Last Admin: 05/23/19 00:42 Dose: 25 mg Admin: 05/22/19 10:26 Dose: 25 mg Guaifenesin/Dextromethorphan (Robitussin Dm) 10 ml PO Q4H PRN PRN Reason: Cough Levofloxacin/Dextrose 750 mg/ (Premix) 150 mls @ 100 mls/hr IV Q24H [facility] Last Admin: 05/22/19 17:23 Dose: 100 mls/hr Ibuprofen (Motrin) 600 mg PO Q6H PRN PRN Reason: Pain/Fever Last Admin: 05/23/19 00:42 Dose: 600 mg Admin: 05/22/19 17:21 Dose: 600 mg Admin: 05/22/19 01:45 Dose: 600 mg Admin: 05/21/19 18:57 Dose: 600 mg Magnesium Hydroxide (Milk Of Magnesia) 30 ml PO Q12H PRN PRN Reason: Constipation Melatonin (Melatonin) 9 mg PO BEDTIME PRN PRN Reason: Sleep Last Admin: 05/22/19 21:10 Dose: 9 mg Metoprolol Succinate (Toprol Xl) 50 mg PO DAILY [facility] Last Admin: 05/22/19 08:50 Dose: 50 mg Ondansetron HCl (Zofran Odt) 4 mg PO Q6H PRN PRN Reason: Nausea able to take PO Ondansetron HCl (Zofran) 4 mg IV Q6H PRN PRN Reason: Nausea/Vomiting Oxybutynin Chloride (Oxybutynin) 5 mg PO TID [facility] Last Admin: 05/22/19 21:04 Dose: 5 mg Admin: 05/22/19 13:10 Dose: 5 mg Admin: 05/22/19 08:48 Dose: 5 mg Pantoprazole Sodium (Protonix) 40 mg PO ACBREAKFAST [facility] Last Admin: 05/23/19 07:16 Dose: 40 mg Admin: 05/22/19 08:48 Dose: 40 mg Senna/Docusate Sodium (Senna Plus) 1 tab PO BID PRN PRN Reason: Constipation Labs: Laboratory Tests 05/21/19 05/21/19 05/21/19 Range/Units 15:57 16:58 16:59 WBC 15.8 H (4.5-11.0) K/uL RBC 3.98 L (4.30-5.90) M/uL Hgb 13.0 (12.0-15.0) g/dL Hct 39.0 L (40.0-54.0) % MCV 98 (80-98) fL MCH 33 H (27-31) pg MCHC 33 (32-36) % Plt Count 91 L (150-400) K/uL Neut % (Auto) 92 H (36-66) % Lymph % (Auto) 3 L (24-44) % Lau[place] % (Auto) 3 (2-6) % Eos % (Auto) 2 (2-4) % Baso % (Auto) 0 (0-1) % Lactic Acid 2.2 H (0.4-2.0) mmol/L Procalcitonin 0.48 ng/mL Meds: Medications Generic Name Dose Route Start Last Admin Trade Name Freq PRN Reason Stop Dose Admin Acetaminophen 650 mg 05/21/19 21:00 05/23/19 02:04 Tylenol PO 650 mg Q4H PRN Administration Pain (Mild 1-3)/fever Albuterol 2.5 mg 05/21/19 18:41 Proventil Neb Soln NEB Q4H PRN Shortness Of Breath/wheezing Allopurinol 100 mg 05/22/19 09:00 05/22/19 08:50 Zyloprim PO 100 mg DAILY VISHAL Administration Aspirin 325 mg 05/22/19 09:00 05/22/19 08:48 Ecotrin PO 325 mg DAILY VISHAL Administration Atorvastatin Calcium 20 mg 05/21/19 21:00 05/22/19 21:04 Lipitor PO 20 mg BEDTIME VISHAL Administration Diphenhydramine HCl 25 mg 05/22/19 10:11 05/23/19 00:42 Benadryl PO 25 mg Q4H PRN Administration Itching Guaifenesin/Dextromethorphan 10 ml 05/21/19 18:41 Robitussin Dm PO Q4H PRN Cough Levofloxacin/Dextrose 750 mg/ 150 mls @ 100 mls/hr 05/22/19 18:00 05/22/19 17 :23 Premix IV 100 mls/hr Q24H VISHAL Administration Ibuprofen 600 mg 05/21/19 18:41 05/23/19 00:42 Motrin PO 600 mg Q6H PRN Administration Pain/Fever Magnesium Hydroxide 30 ml 05/21/19 18:41 Milk Of Magnesia PO Q12H PRN Constipation Melatonin 9 mg 05/21/19 18:41 05/22/19 21:10 Melatonin PO 9 mg BEDTIME PRN Administration Sleep Metoprolol Succinate 50 mg 05/22/19 09:00 05/22/19 08:50 Toprol Xl PO 50 mg DAILY VISHAL Administration Ondansetron HCl 4 mg 05/21/19 18:41 Zofran Odt PO Q6H PRN Nausea able to take PO Ondansetron HCl 4 mg 05/21/19 18:41 Zofran IV Q6H PRN Nausea/Vomiting Oxybutynin Chloride 5 mg 05/22/19 09:00 05/22/19 21:04 Oxybutynin PO 5 mg TID VISHAL Administration Pantoprazole Sodium 40 mg 05/22/19 07:30 05/23/19 07:16 Protonix PO 40 mg ACBREAKFAST VISHAL Administration Senna/Docusate Sodium 1 tab 05/21/19 18:41 Senna Plus PO BID PRN Constipation Discontinued Medications Generic Name Dose Route Start Last Admin Trade Name Terrell PRN Reason Stop Dose Admin Acetaminophen 650 mg 05/21/19 17:01 05/21/19 17:06 Tylenol PO 05/21/19 17:02 650 mg NOW ONE Administration Sodium Chloride 1,000 mls @ 500 mls/hr 05/21/19 17:30 05/21/19 17:44 Normal Saline IV 500 mls/hr ASDIRECTED [facility] Administration Levofloxacin/Dextrose 750 mg/ 150 mls @ 100 mls/hr 05/21/19 17:45 05/21/19 18 :04 Premix IV 05/21/19 19:14 100 mls/hr ONETIME ONE Administration Sodium Chloride 1,000 mls @ 100 mls/hr 05/21/19 19:30 05/22/19 06:12 Normal Saline IV 100 mls/hr ASDIRECTED [facility] Administration - Re-Assessments/Exams Free Text/Narrative Re-Assessment/Exam: 05/21/19 17:19 pt has a rash which could be a reaction to the rocephen. He has a wbc of 15, 000. He has had a repeat chest xray which did not look different from yesterday. Departure - Departure Time of Disposition: 17:20 Disposition: Admitted As Inpatient 68 Condition: Fair Clinical Impression: Fever Follicular lymphoma Qualifiers: Follicular lymphoma type: unspecified follicular type Lymphoma site: unspecified region Qualified Code(s): C82.90 - Follicular lymphoma, unspecified , unspecified site - Discharge Information
[2019-05-21] MEDS ORDERED: Acetaminophen 325 MG Tab PO ONE (17:01)
--- NOTE | 2019-05-21 17:21 | CRLCR ---
INDICATION: Fever TECHNIQUE: Chest 2 views COMPARISON: May 20, 2019 FINDINGS: Cardiovascular and mediastinum: Heart size and vasculature are normal in caliber and appearance. Lungs and pleural spaces: Again demonstrated is a small ill-defined opacity in the lower left lung. Remainder of the lungs and pleural spaces are clear. Bones and soft tissues: No significant findings. IMPRESSION: Nonspecific small ill-defined opacity in the left lower lobe. Pneumonia in this location is not definite but possible. Remainder of the exam is unremarkable. Dictated by Darrick Bermudez MD @ 05/21/2019 5:20:04 PM Dictated by: Darrick Bermudez MD @ 05/21/2019 17:20:14 (Electronically Signed)
[2019-05-21] MEDS ORDERED: Sodium Chloride 0.9% 1,000 ML IV SCH (17:30)
[2019-05-21] MEDS ORDERED: Levofloxacin/Dextrose 5%-Water 750 MG in Premix Bag 1 BAG IV ONE (17:45)
--- NOTE | 2019-05-21 17:56 | PCM.HP ---
H&P History of Present Illness - General Date of Service: 05/21/19 Admit Problem/Dx: Admission Diagnosis/Problem Admission Diagnosis/Problem Left lower lobe pneumonia Source of Information: Patient, Family, Provider History Limitations: Reports: No Limitations - History of Present Illness Initial Comments - Free Text/Narative: CC: I'm shaking all over HPI: Rusty presents to the emergency room again today with fever. He was seen here yesterday for fever and there were no localizing symptoms but possible left lower lobe pneumonia was considered. He received ceftriaxone in the emergency room and was sent home with levofloxacin and a plan to start this medication today. His story starts 3 or 4 days ago when he first noticed mild fevers. He felt a little bit lethargic and fatigued and did not have any specific symptoms. Temperature elevations were less than 100 at that time. He had had chemotherapy several days prior to that (10 days prior to this admission ). Symptoms progressed over the next couple of days and temperature increased. He measured temperatures higher than 101 at home. He did not report headache, shortness of breath, cough, chest pain or abdominal pain. He did report some increased urinary urgency but did not have dysuria. No change in bowels. Appetite had been fairly good up until a few days ago. Since going home from the emergency room yesterday he has had recurrent difficulties with fevers. He is more weak and more lethargic today. He has continued to have fevers. Still does not have a cough or shortness of breath. In the past 24 hours some more he has developed a diffuse maculopapular rash. This is not itchy and he did not even know was there until his close removed for examination today. Repeat workup in the emergency room today showed stable white blood cell count. Chest x-ray still shows a subtle infiltrate in the left lower lung base that could represent a developing infiltrate. The patient will be admitted for management of pneumonia that failing outpatient therapy. - Related Data Allergies/Adverse Reactions: Allergies Allergy/AdvReac Type Severity Reaction Status Date / Time No Known Allergies Allergy Verified 05/21/19 15:46 Home Medications: Home Meds Lisinopril 5 mg PO BEDTIME 09/17/13 [History] Omeprazole 20 mg PO BEDTIME 09/17/13 [History] atorvaSTATin [Lipitor] 20 mg PO BEDTIME 09/17/13 [History] Aspirin [Ecotrin] 325 mg PO DAILY 09/15/15 [History] Nitroglycerin [Nitrostat] 0.4 mg SL ASDIRECTED PRN 12/04/16 [History] Oxybutynin Chloride [Oxybutynin Chloride ER] 15 mg PO DAILY 02/19/18 [History] Metoprolol Succinate 50 mg PO DAILY 02/27/19 [History] Allopurinol [Zyloprim] 100 mg PO DAILY 05/20/19 [History] Prochlorperazine [Compazine] 10 mg PO DAILY PRN 05/20/19 [History] Past Medical History - Past Health History Medical/Surgical History: Denies Medical/Surgical History HEENT History: Reports: Cataract, Hard of Hearing, Impaired Vision Other HEENT History: astigmatism; tinnitus Cardiovascular History: Reports: CAD, High Cholesterol, Hypertension, Stents Gastrointestinal History: Reports: Colon Polyp, Diverticulosis, Irritable Bowel Syndrome Other Gastrointestinal History: Patient states, "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 Genitourinary History: Reports: Prostate Disorder, Renal Calculus, Retention, Urinary Musculoskeletal History: Reports: Fracture, Osteoarthritis Neurological History: Reports: Migraines Oncologic (Cancer) History: Reports: Lymphoma Dermatologic History: Reports: Psoriasis, Urticaria - Infectious Disease History Infectious Disease History: Reports: Chicken Pox, Measles, Mumps, Rubella - Past Surgical History Cardiovascular Surgical History: Reports: Coronary Artery Stent, Percutaneous Transluminal Angioplasty GI Surgical History: Reports: Colonoscopy, EGD, Hernia, Inguinal, Hernia Repair/ Other Male Surgical History: Reports: TURP-Transurethral Resection of Prostate Musculoskeletal Surgical History: Reports: Arthroscopic Knee, Arthroscopic Procedure, Shoulder Surgery Social & Family History - Family History Family Medical History: Noncontributory Oncologic: Reports: Colon, Lung - Tobacco Use Smoking Status *Q: Never Smoker - Caffeine Use Caffeine Use: Reports: None Caffeine Use Comment: 1 cup per day - Alcohol Use Alcohol Use History: No - Recreational Drug Use Recreational Drug Use: No H&P Review of Systems - Review of Systems: Review Of Systems: See Below Free Text/Narrative: A complete 12 point review of systems was obtained. Pertinent positives and negatives are noted in the history of present illness. All other systems were reviewed and were negative except as noted. Exam - Exam Exam: See Below - Vital Signs Vital Signs: Last Vital Signs Temp 38.6 C H 05/21/19 17:36 Pulse 101 H 05/21/19 15:47 Resp 22 H 05/21/19 15:47 BP 117/55 L 05/21/19 15:47 Pulse Ox 96 05/21/19 15:47 Weight: 68.946 kg - Exam Quality Assessment: No: Supplemental Oxygen General: Alert, Oriented, Cooperative, Mild Distress HEENT: Conjunctiva Clear. No: Mucosa Moist & [place] (dry), Scleral Icterus Neck: Supple, Trachea Midline. No: Lymphadenopathy Lungs: Normal Respiratory Effort, Decreased Breath Sounds (mild left lung base) , Crackles (rare left lung base) Cardiovascular: Regular Rate, Regular Rhythm GI/Abdominal Exam: Normal Bowel Sounds, Soft, Non-Tender, No Distention Back Exam: Normal Inspection, Full Range of Motion Extremities: No Pedal Edema. No: Increased Warmth Peripheral Pulses: 2+: Dorsalis Pedis (L), Dorsalis Pedis (R) Skin: Warm, Dry, Rash (diffuse maculo-papular rash most intense on trunk and back and fades as it progresses distally on arms and legs) - Patient Data Lab Results Last 24 hrs: Laboratory Results - last 24 hr 05/21/19 05/21/19 05/21/19 Range/Units 15:57 16:58 16:59 WBC 15.8 H (4.5-11.0) K/uL RBC 3.98 L (4.30-5.90) M/uL Hgb 13.0 (12.0-15.0) g/dL Hct 39.0 L (40.0-54.0) % MCV 98 (80-98) fL MCH 33 H (27-31) pg MCHC 33 (32-36) % Plt Count 91 L (150-400) K/uL Neut % (Auto) 92 H (36-66) % Lymph % (Auto) 3 L (24-44) % [place] % (Auto) 3 (2-6) % Eos % (Auto) 2 (2-4) % Baso % (Auto) 0 (0-1) % Lactic Acid 2.2 H (0.4-2.0) mmol/L Procalcitonin 0.48 ng/mL Result Diagrams: 05/21/19 15:57 Imaging Impressions Last 24 hrs: CXR - images personally reviewed - there is a subtle opacity left lower lung similar to yesterday. No mass or infiltrate. No chf. *Q Meaningful Use (ADM) - VTE Risk Assess *Q Each Risk Factor Represents 1 Point: None, Serious lung disease including pneumonia Total Score 1 Point Risk Factors: 1 Each Risk Factor Represents 2 Points: Malignancy (present or previous) Total Score 2 Point Risk Factors: 2 Each Risk Factor Represents 3 Points: Age 75 Years or Greater Total Score 3 Point Risk Factors: 3 Each Risk Factor Represents 5 Points: None Total Score 5 Point Risk Factors: 0 Venous Thromboembolism Risk Factor Score *Q: 6 - Problem List (1) Left lower lobe pneumonia SNOMED Code(s): 891567622 ICD Code: J18.1 - LOBAR PNEUMONIA, UNSPECIFIED ORGANISM Status: Acute Current Visit: Yes Qualifiers: Pneumonia type: due to unspecified organism Qualified Code(s): J18.1 - Lobar pneumonia, unspecified organism (2) Lymphoma, follicular SNOMED Code(s): 241305891, 243910921 ICD Code: C82.90 - FOLLICULAR LYMPHOMA, UNSPECIFIED, UNSPECIFIED SITE Status: Acute Current Visit: Yes Qualifiers: Follicular lymphoma type: unspecified follicular type Lymphoma site: unspecified region Qualified Code(s): C82.90 - Follicular lymphoma, unspecified, unspecified site Problem List Initiated/Reviewed/Updated: Yes Orders Last 24hrs: Active Orders 24 hr Category Date Time Status Patient Status Manage Transfer [TRANSFER] Routine ADT 05/21/19 17:46 Ordered Levofloxacin/Dextrose 5%-Water [Levaquin in D5W 750 MG/ Med 05/21/19 17:45 Active 150 ML] 750 mg Premix Bag 1 bag IV ONETIME Sodium Chloride 0.9% [Normal Saline] 1,000 ml Med 05/21/19 17:30 Active IV ASDIRECTED Resuscitation Status Routine Resus Stat 05/21/19 17:48 Ordered Medication Orders Sodium Chloride (Normal Saline) 1,000 mls @ 500 mls/hr IV ASDIRECTED VISHAL Last Admin: 05/21/19 17:44 Dose: 500 mls/hr Levofloxacin/Dextrose 750 mg/ (Premix) 150 mls @ 100 mls/hr IV ONETIME ONE Stop: 05/21/19 19:14 Assessment/Plan Comment:: ASSESSMENT AND PLAN - Probable left lower lobe pneumonia - this would explain his fever. Pro- calcitonin level elevated to the point that lower respiratory infection is probable and antibiotics should be considered. He continues to be febrile and there is no other obvious source for infection. He is not currently hypoxic. He appears to be feeling outpatient therapy as he had antibiotics administered yesterday. -Levofloxacin -Symptomatic management of fever -IV fluids -Follow-up blood cultures Diffuse maculopapular rash - I suspect this is related to the ceftriaxone administered yesterday. No history of allergies to any medications or antibiotics but no other obvious cause. He did not take any of the levofloxacin that was prescribed yesterday. -Symptomatically management if it becomes pruritic Follicular lymphoma - first round of chemotherapy was about 10 days ago. -Outpatient follow-up with oncology Maintenance issues - - DVT prophylaxis - mechanical with thrombocytopenia - GI prophylaxis - PPI - Nutrition - regular - Pyle catheter - not indicated CODE STATUS - full code Admission justification - This patient will be admitted for inpatient services and is medically appropriate meeting medical necessity for inpatient admission as outlined in my documentation. I reasonably expect the patient will require inpatient services that span a period time over 2 midnights. I reasonably expect this patient to be discharged or transferred within 96 hours [facility] Pneumonia failing outpatient therapy , new drug rash. Disposition - I would anticipate discharge home after the hospital stay Primary care physician - Dr. Lopez Primary oncologist - Dr Adele Sinha M.D.
[2019-05-21] MEDS ORDERED: Melatonin 3 MG Tab PO PRN (18:41)
[2019-05-21] MEDS ORDERED: Magnesium Hydroxide 400 MG/5 ML Susp 30 ML Cup PO PRN (18:41)
[2019-05-21] MEDS ORDERED: guaiFENesin/Dextromethorphan 100-10 MG/5 ML Soln 10 ML Cup PO PRN (18:41)
[2019-05-21] MEDS ORDERED: Ondansetron 4 MG/2 ML SDV IV PRN (18:41)
[2019-05-21] MEDS ORDERED: Albuterol 0.083% 2.5 MG/3 ML Neb Soln NEB PRN (18:41)
[2019-05-21] MEDS ORDERED: Ondansetron 4 MG Tab.DIS PO PRN (18:41)
[2019-05-21] MEDS: Ibuprofen 600 MG Tab PO PRN (18:57)
[2019-05-21] MEDS: atorvaSTATin 20 MG Tab PO SCH (21:03)
[2019-05-21] MEDS: Sodium Chloride 0.9% 1,000 ML IV SCH (21:05)
[2019-05-22] MEDS: Acetaminophen 325 MG Tab PO PRN ×3 (01:44→14:24)
[2019-05-22] MEDS: Ibuprofen 600 MG Tab PO PRN ×2 (01:45→17:21)
[2019-05-22] MEDS: Sodium Chloride 0.9% 1,000 ML IV SCH (06:12)
[2019-05-22] MEDS: Pantoprazole 40 MG Tab.CR PO SCH (08:48)
[2019-05-22] MEDS: Aspirin 325 MG Tab.EC PO SCH (08:48)
[2019-05-22] MEDS: Oxybutynin 5 MG Tab PO SCH ×3 (08:48→21:04)
[2019-05-22] MEDS: Metoprolol Succinate 50 MG Tab.ER PO SCH (08:50)
[2019-05-22] MEDS: Allopurinol 100 MG Tab PO SCH (08:50)
--- NOTE | 2019-05-22 10:05 | PCM.PN ---
- General Info Date of Service: 05/22/19 Admission Dx/Problem (Free Text): Admission Diagnosis/Problem Admission Diagnosis/Problem Left lower lobe pneumonia Subjective Update: Feels he has improved significantly since admission, denies any difficulty with breathing however family does admit he has been short of breath but feels better. No fevers last night no acute events eating and drinking okay has not done much for ambulation Functional Status: Reports: Pain Controlled - Review of Systems General: Reports: No Symptoms HEENT: Reports: No Symptoms Pulmonary: Reports: No Symptoms Cardiovascular: Reports: No Symptoms Gastrointestinal: Reports: No Symptoms Musculoskeletal: Reports: No Symptoms - Patient Data Vitals - Most Recent: Last Vital Signs Temp 98.0 F 05/22/19 07:31 Pulse 84 05/22/19 08:50 Resp 17 05/22/19 07:31 BP 115/42 L 05/22/19 08:55 Pulse Ox 96 05/22/19 07:31 Weight - Most Recent: 68.402 kg I&O - Last 24 Hours: Intake & Output 05/21/19 05/22/19 05/22/19 22:59 06:59 14:59 Intake Total 340 2085 Output Total 300 Balance 340 1785 Lab Results Last 24 Hours: Laboratory Results - last 24 hr 05/21/19 05/21/19 05/21/19 Range/Units 15:57 16:58 16:59 WBC 15.8 H (4.5-11.0) K/uL RBC 3.98 L (4.30-5.90) M/uL Hgb 13.0 (12.0-15.0) g/dL Hct 39.0 L (40.0-54.0) % MCV 98 (80-98) fL MCH 33 H (27-31) pg MCHC 33 (32-36) % Plt Count 91 L (150-400) K/uL Neut % (Auto) 92 H (36-66) % Lymph % (Auto) 3 L (24-44) % [place] % (Auto) 3 (2-6) % Eos % (Auto) 2 (2-4) % Baso % (Auto) 0 (0-1) % Sodium (140-148) mmol/L Potassium (3.6-5.2) mmol/L Chloride (100-108) mmol/L Carbon Dioxide (21-32) mmol/L Anion Gap (5.0-14.0) mmol/L BUN (7-18) mg/dL Creatinine (0.8-1.3) mg/dL Est Cr Clr Drug Dosing mL/min Estimated GFR (MDRD) (>60) Glucose (74-106) mg/dL Lactic Acid 2.2 H (0.4-2.0) mmol/L Calcium (8.5-10.1) mg/dL Procalcitonin 0.48 ng/mL 05/22/19 05/22/19 Range/Units 04:30 04:30 WBC 14.9 H (4.5-11.0) K/uL RBC 3.45 L (4.30-5.90) M/uL Hgb 11.1 L (12.0-15.0) g/dL Hct 34.2 L (40.0-54.0) % MCV 99 H (80-98) fL MCH 32 H (27-31) pg MCHC 33 (32-36) % Plt Count 76 L (150-400) K/uL Neut % (Auto) (36-66) % Lymph % (Auto) (24-44) % [place] % (Auto) (2-6) % Eos % (Auto) (2-4) % Baso % (Auto) (0-1) % Sodium 133 L (140-148) mmol/L Potassium 3.9 (3.6-5.2) mmol/L Chloride 101 (100-108) mmol/L Carbon Dioxide 21 (21-32) mmol/L Anion Gap 14.9 H (5.0-14.0) mmol/L BUN 19 H (7-18) mg/dL Creatinine 1.0 (0.8-1.3) mg/dL Est Cr Clr Drug Dosing 55.10 mL/min Estimated GFR (MDRD) > 60 (>60) Glucose 98 (74-106) mg/dL Lactic Acid (0.4-2.0) mmol/L Calcium 8.3 L (8.5-10.1) mg/dL Procalcitonin ng/mL Med Orders - Current: Current Medications Acetaminophen (Tylenol) 650 mg PO Q4H PRN PRN Reason: Pain (Mild 1-3)/fever Last Admin: 05/22/19 06:12 Dose: 650 mg Albuterol (Proventil Neb Soln) 2.5 mg NEB Q4H PRN PRN Reason: Shortness Of Breath/wheezing Allopurinol (Zyloprim) 100 mg PO DAILY [facility] Last Admin: 05/22/19 08:50 Dose: 100 mg Aspirin (Ecotrin) 325 mg PO DAILY [facility] Last Admin: 05/22/19 08:48 Dose: 325 mg Atorvastatin Calcium (Lipitor) 20 mg PO BEDTIME [facility] Last Admin: 05/21/19 21:03 Dose: 20 mg Guaifenesin/Dextromethorphan (Robitussin Dm) 10 ml PO Q4H PRN PRN Reason: Cough Levofloxacin/Dextrose 750 mg/ (Premix) 150 mls @ 100 mls/hr IV Q24H [facility] Sodium Chloride (Normal Saline) 1,000 mls @ 100 mls/hr IV ASDIRECTED [facility] Last Admin: 05/22/19 06:12 Dose: 100 mls/hr Ibuprofen (Motrin) 600 mg PO Q6H PRN PRN Reason: Pain/Fever Last Admin: 05/22/19 01:45 Dose: 600 mg Magnesium Hydroxide (Milk Of Magnesia) 30 ml PO Q12H PRN PRN Reason: Constipation Melatonin (Melatonin) 9 mg PO BEDTIME PRN PRN Reason: Sleep Metoprolol Succinate (Toprol Xl) 50 mg PO DAILY [facility] Last Admin: 05/22/19 08:50 Dose: 50 mg Ondansetron HCl (Zofran Odt) 4 mg PO Q6H PRN PRN Reason: Nausea able to take PO Ondansetron HCl (Zofran) 4 mg IV Q6H PRN PRN Reason: Nausea/Vomiting Oxybutynin Chloride (Oxybutynin) 5 mg PO TID [facility] Last Admin: 05/22/19 08:48 Dose: 5 mg Pantoprazole Sodium (Protonix) 40 mg PO ACBREAKFAST [facility] Last Admin: 05/22/19 08:48 Dose: 40 mg Senna/Docusate Sodium (Senna Plus) 1 tab PO BID PRN PRN Reason: Constipation Discontinued Medications Acetaminophen (Tylenol) 650 mg PO NOW ONE Stop: 05/21/19 17:02 Last Admin: 05/21/19 17:06 Dose: 650 mg Sodium Chloride (Normal Saline) 1,000 mls @ 500 mls/hr IV ASDIRECTED [facility] Last Admin: 05/21/19 17:44 Dose: 500 mls/hr Levofloxacin/Dextrose 750 mg/ (Premix) 150 mls @ 100 mls/hr IV ONETIME ONE Stop: 05/21/19 19:14 Last Admin: 05/21/19 18:04 Dose: 100 mls/hr - Exam General: Alert, Oriented HEENT: Pupils Equal Lungs: Normal Respiratory Effort, Crackles (Crackles left lower lobe) Cardiovascular: Regular Rate, Regular Rhythm GI/Abdominal Exam: Soft, Non-Tender Extremities: Normal Inspection - Problem List & Annotations (1) Left lower lobe pneumonia SNOMED Code(s): 341353330 Code(s): J18.1 - LOBAR PNEUMONIA, UNSPECIFIED ORGANISM Status: Acute Priority: High Current Visit: Yes Qualifiers: Pneumonia type: due to unspecified organism Qualified Code(s): J18.1 - Lobar pneumonia, unspecified organism (2) Lymphoma, follicular SNOMED Code(s): 086710660, 551123603 Code(s): C82.90 - FOLLICULAR LYMPHOMA, UNSPECIFIED, UNSPECIFIED SITE Status : Acute Priority: Medium Current Visit: Yes Qualifiers: Follicular lymphoma type: unspecified follicular type Lymphoma site: unspecified region Qualified Code(s): C82.90 - Follicular lymphoma, unspecified, unspecified site - Problem List Review Problem List Initiated/Reviewed/Updated: Yes - My Orders Last 24 Hours: My Active Orders 05/22/19 09:34 PT Evaluation and Treatment [CONS] Routine 05/23/19 05:11 BASIC METABOLIC PANEL,BMP [CHEM] AM CBC WITH AUTO DIFF [HEME] AM - Plan Plan:: ASSESSMENT AND PLAN - Probable left lower lobe pneumonia - this would explain his fever. Pro- calcitonin level elevated to the point that lower respiratory infection is probable and antibiotics should be considered. Has improved with 24 hours of IV antibiotics. -Levofloxacin -Symptomatic management of fever -IV fluids will saline lock at this time -Follow-up blood cultures Diffuse maculopapular rash - I suspect this is related to the ceftriaxone administered yesterday. No history of allergies to any medications or antibiotics but no other obvious cause. He did not take any of the levofloxacin that was prescribed yesterday. Has improved since yesterday -Symptomatically management if it becomes pruritic Follicular lymphoma - first round of chemotherapy was about 10 days ago. -Outpatient follow-up with oncology Maintenance issues - - DVT prophylaxis - mechanical with thrombocytopenia - GI prophylaxis - PPI - Nutrition - regular - Pyle catheter - not indicated CODE STATUS - full code Disposition - I would anticipate discharge home after the hospital stay Primary care physician - Dr. Lopez Primary oncologist - Dr Adele Kauffman Officer, .
[2019-05-22] MEDS: diphenhydrAMINE 25 MG Cap PO PRN (10:26)
[2019-05-22] MEDS: Levofloxacin/Dextrose 5%-Water 750 MG in Premix Bag 1 BAG IV SCH (17:23)
[2019-05-22] MEDS: atorvaSTATin 20 MG Tab PO SCH (21:04)
[2019-05-23] MEDS: Ibuprofen 600 MG Tab PO PRN ×2 (00:42→19:53)
[2019-05-23] MEDS: diphenhydrAMINE 25 MG Cap PO PRN ×2 (00:42→09:54)
[2019-05-23] MEDS: Acetaminophen 325 MG Tab PO PRN ×2 (02:04→15:57)
[2019-05-23] MEDS: Pantoprazole 40 MG Tab.CR PO SCH (07:16)
[2019-05-23] MEDS: Aspirin 325 MG Tab.EC PO SCH (09:00)
[2019-05-23] MEDS: Allopurinol 100 MG Tab PO SCH (09:00)
[2019-05-23] MEDS: Oxybutynin 5 MG Tab PO SCH ×3 (09:00→20:22)
[2019-05-23] MEDS: Metoprolol Succinate 50 MG Tab.ER PO SCH (09:03)
--- NOTE | 2019-05-23 10:20 | PCM.PN ---
- General Info Date of Service: 05/23/19 Admission Dx/Problem (Free Text): Admission Diagnosis/Problem Admission Diagnosis/Problem Left lower lobe pneumonia Subjective Update: Feels he is continuing to improve with his breathing. He did have fevers again last night. States he is to ambulate further, tolerating a diet no other significant complaints Functional Status: Reports: Pain Controlled - Review of Systems General: Reports: Fever HEENT: Reports: No Symptoms Pulmonary: Reports: No Symptoms Cardiovascular: Reports: No Symptoms Gastrointestinal: Reports: No Symptoms - Patient Data Vitals - Most Recent: Last Vital Signs Temp 98.1 F 05/23/19 07:17 Pulse 81 05/23/19 07:17 Resp 16 05/23/19 07:17 BP 106/50 L 05/23/19 07:17 Pulse Ox 96 05/23/19 07:17 Weight - Most Recent: 68.402 kg I&O - Last 24 Hours: Intake & Output 05/22/19 05/23/19 05/23/19 22:59 06:59 14:59 Intake Total 1145 Output Total 750 700 Balance 395 -700 Lab Results Last 24 Hours: Laboratory Results - last 24 hr 05/23/19 05/23/19 Range/Units 04:50 04:50 WBC 13.9 H (4.5-11.0) K/uL RBC 3.35 L (4.30-5.90) M/uL Hgb 11.1 L (12.0-15.0) g/dL Hct 32.6 L (40.0-54.0) % MCV 97 (80-98) fL MCH 33 H (27-31) pg MCHC 34 (32-36) % Plt Count 74 L (150-400) K/uL Add Manual Diff Yes Neutrophils % (Manual) 77 H (36-66) % Band Neutrophils % 14 H (5-11) % Lymphocytes % (Manual) 4 L (24-44) % Monocytes % (Manual) 3 (2-6) % Eosinophils % (Manual) 2 (2-4) % Anisocytosis Moderate H Sodium 133 L (140-148) mmol/L Potassium 4.1 (3.6-5.2) mmol/L Chloride 101 (100-108) mmol/L Carbon Dioxide 23 (21-32) mmol/L Anion Gap 13.1 (5.0-14.0) mmol/L BUN 19 H (7-18) mg/dL Creatinine 1.0 (0.8-1.3) mg/dL Est Cr Clr Drug Dosing 55.10 mL/min Estimated GFR (MDRD) > 60 (>60) Glucose 90 (74-106) mg/dL Calcium 8.6 (8.5-10.1) mg/dL Med Orders - Current: Current Medications Acetaminophen (Tylenol) 650 mg PO Q4H PRN PRN Reason: Pain (Mild 1-3)/fever Last Admin: 05/23/19 02:04 Dose: 650 mg Albuterol (Proventil Neb Soln) 2.5 mg NEB Q4H PRN PRN Reason: Shortness Of Breath/wheezing Allopurinol (Zyloprim) 100 mg PO DAILY [facility] OF [facility] Last Admin: 05/23/19 09:00 Dose: 100 mg Aspirin (Ecotrin) 325 mg PO DAILY [facility] Last Admin: 05/23/19 09:00 Dose: 325 mg Atorvastatin Calcium (Lipitor) 20 mg PO BEDTIME ON [facility] Last Admin: 05/22/19 21:04 Dose: 20 mg Diphenhydramine HCl (Benadryl) 25 mg PO Q4H PRN PRN Reason: Itching Last Admin: 05/23/19 09:54 Dose: 25 mg Guaifenesin/Dextromethorphan (Robitussin Dm) 10 ml PO Q4H PRN PRN Reason: Cough Levofloxacin/Dextrose 750 mg/ (Premix) 150 mls @ 100 mls/hr IV Q24H [facility] Last Admin: 05/22/19 17:23 Dose: 100 mls/hr Ibuprofen (Motrin) 600 mg PO Q6H PRN PRN Reason: Pain/Fever Last Admin: 05/23/19 00:42 Dose: 600 mg Magnesium Hydroxide (Milk Of Magnesia) 30 ml PO Q12H PRN PRN Reason: Constipation Melatonin (Melatonin) 9 mg PO BEDTIME PRN PRN Reason: Sleep Last Admin: 05/22/19 21:10 Dose: 9 mg Metoprolol Succinate (Toprol Xl) 50 mg PO DAILY [facility] Last Admin: 05/23/19 09:03 Dose: Not Given Ondansetron HCl (Zofran Odt) 4 mg PO Q6H PRN PRN Reason: Nausea able to take PO Ondansetron HCl (Zofran) 4 mg IV Q6H PRN PRN Reason: Nausea/Vomiting Oxybutynin Chloride (Oxybutynin) 5 mg PO TID [facility] Last Admin: 05/23/19 09:00 Dose: 5 mg Pantoprazole Sodium (Protonix) 40 mg PO ACBREAKFAST [facility] Last Admin: 05/23/19 07:16 Dose: 40 mg Senna/Docusate Sodium (Senna Plus) 1 tab PO BID PRN PRN Reason: Constipation Discontinued Medications Acetaminophen (Tylenol) 650 mg PO NOW ONE Stop: 05/21/19 17:02 Last Admin: 05/21/19 17:06 Dose: 650 mg Sodium Chloride (Normal Saline) 1,000 mls @ 500 mls/hr IV ASDIRECTED ON [facility] OF [facility] Last Admin: 05/21/19 17:44 Dose: 500 mls/hr Levofloxacin/Dextrose 750 mg/ (Premix) 150 mls @ 100 mls/hr IV ONETIME ONE Stop: 05/21/19 19:14 Last Admin: 05/21/19 18:04 Dose: 100 mls/hr Sodium Chloride (Normal Saline) 1,000 mls @ 100 mls/hr IV ASDIRECTED ON [facility] Last Admin: 05/22/19 06:12 Dose: 100 mls/hr - Exam General: Alert, Oriented Lungs: Normal Respiratory Effort, Crackles (Crackles in bases bilaterally), Other (Breath sounds improved from yesterday) Cardiovascular: Regular Rate, Regular Rhythm GI/Abdominal Exam: Soft, Non-Tender - Problem List & Annotations (1) Left lower lobe pneumonia SNOMED Code(s): 422219543 Code(s): J18.1 - LOBAR PNEUMONIA, UNSPECIFIED ORGANISM Status: Acute Priority: High Current Visit: Yes Qualifiers: Pneumonia type: due to unspecified organism Qualified Code(s): J18.1 - Lobar pneumonia, unspecified organism (2) Lymphoma, follicular SNOMED Code(s): 929500980, 473847268 Code(s): C82.90 - FOLLICULAR LYMPHOMA, UNSPECIFIED, UNSPECIFIED SITE Status : Acute Priority: Medium Current Visit: Yes Qualifiers: Follicular lymphoma type: unspecified follicular type Lymphoma site: unspecified region Qualified Code(s): C82.90 - Follicular lymphoma, unspecified, unspecified site - Problem List Review Problem List Initiated/Reviewed/Updated: Yes - My Orders Last 24 Hours: My Active Orders 05/22/19 09:34 PT Evaluation and Treatment [CONS] Routine 05/22/19 10:11 diphenhydrAMINE [Benadryl] 25 mg PO Q4H PRN 05/22/19 17:40 CULTURE BLOOD [BC] Routine 05/22/19 17:50 CULTURE BLOOD [BC] Routine - Plan Plan:: ASSESSMENT AND PLAN - Probable left lower lobe pneumonia - this would explain his fever. Pro- calcitonin level elevated to the point that lower respiratory infection is probable and antibiotics should be considered. Has improved with 48 hours of IV antibiotics. -Levofloxacin -Symptomatic management of fever -IV fluids will saline lock at this time -Follow-up blood cultures Diffuse maculopapular rash - I suspect this is related to the ceftriaxone administered yesterday. No history of allergies to any medications or antibiotics but no other obvious cause. He did not take any of the levofloxacin that was prescribed yesterday. Has improved since yesterday -Symptomatically management if it becomes pruritic has been using Benadryl for symptomatic relief rash continues to improve Follicular lymphoma - first round of chemotherapy was about 10 days ago. -Outpatient follow-up with oncology Maintenance issues - - DVT prophylaxis - mechanical with thrombocytopenia - GI prophylaxis - PPI - Nutrition - regular - Pyle catheter - not indicated CODE STATUS - full code Disposition - I would anticipate discharge home after the hospital stay Primary care physician - Dr. Lopez Primary oncologist - Dr Adele Kauffman OfficerMD.
[2019-05-23] MEDS: hydrOXYzine HCl 25 MG Tab PO PRN ×2 (12:13→19:53)
[2019-05-23] MEDS: Levofloxacin/Dextrose 5%-Water 750 MG in Premix Bag 1 BAG IV SCH (17:20)
[2019-05-23] MEDS: atorvaSTATin 20 MG Tab PO SCH (20:22)
[2019-05-24] MEDS: Ibuprofen 600 MG Tab PO PRN ×2 (01:09→07:30)
[2019-05-24] MEDS: hydrOXYzine HCl 25 MG Tab PO PRN ×2 (01:09→07:30)
[2019-05-24 07:02] VITALS: BP 118/62; PULSE 84
[2019-05-24] MEDS: Pantoprazole 40 MG Tab.CR PO SCH (07:30)
--- NOTE | 2019-05-24 08:29 | PCM.DCSUM1 ---
Discharge Summary - Hospital Course Free Text/Narrative:: 84-year-old gentleman admitted to the emergency department for increasing weakness and fever. He does have a history of follicular lymphoma recently underwent chemotherapy. Initial workup in the ED questionable area left lower lobe to be pneumonia was treated with Rocephin and outpatient medications discharged home unfortunately developed a rash consistent with a drug eruption. Subsequently admitted the hospital treated with Levaquin with the presumption of left lower lobe pneumonia continued to improve however still spiking fevers at night but breathing has vastly improved he is ambulateing in the hallway still continues to have weakness but has improved every day. His rash has improved daily but he is still getting intermittent pruritus this has been controlled with Vistaril - Discharge Data Discharge Date: 05/24/19 Discharge Disposition: Home, Self-Care 01 Condition: Good - Discharge Diagnosis/Problem(s) (1) Left lower lobe pneumonia SNOMED Code(s): 786371304 ICD Code: J18.1 - LOBAR PNEUMONIA, UNSPECIFIED ORGANISM Status: Acute Priority: High Current Visit: Yes Qualifiers: Pneumonia type: due to unspecified organism Qualified Code(s): J18.1 - Lobar pneumonia, unspecified organism (2) Lymphoma, follicular SNOMED Code(s): 839427700, 748750539 ICD Code: C82.90 - FOLLICULAR LYMPHOMA, UNSPECIFIED, UNSPECIFIED SITE Status: Acute Priority: Medium Current Visit: Yes Qualifiers: Follicular lymphoma type: unspecified follicular type Lymphoma site: unspecified region Qualified Code(s): C82.90 - Follicular lymphoma, unspecified, unspecified site - Patient Summary/Data Consults: Consultations 05/22/19 09:34 PT Evaluation and Treatment [CONS] Routine Please Evaluate and Treat. PT Reason for Consult: Strengthening Pending Discharge: Yes Discharge Disposition: Home This query below is only for informational purposes and is not editable. Admission Diagnosis/Problem: Left lower lobe pneumonia - Patient Instructions Diet: Regular Diet as Tolerated - Discharge Plan Home Medications: Home Meds Lisinopril 5 mg PO BEDTIME 09/17/13 [History] Omeprazole 20 mg PO BEDTIME 09/17/13 [History] atorvaSTATin [Lipitor] 20 mg PO BEDTIME 09/17/13 [History] Aspirin [Ecotrin] 325 mg PO DAILY 09/15/15 [History] Nitroglycerin [Nitrostat] 0.4 mg SL ASDIRECTED PRN 12/04/16 [History] Oxybutynin Chloride [Oxybutynin Chloride ER] 15 mg PO DAILY 02/19/18 [History] Metoprolol Succinate 50 mg PO DAILY 02/27/19 [History] Allopurinol [Zyloprim] 100 mg PO DAILY 05/20/19 [History] Prochlorperazine [Compazine] 10 mg PO DAILY PRN 05/20/19 [History] Sennosides/Docusate Sodium [Senna-S] 1 each PO DAILY 05/22/19 [History] hydrOXYzine HCl [Atarax] 25 mg PO Q4H PRN #20 tab 05/24/19 [Rx] levoFLOXacin [Levaquin] 500 mg PO DAILY #7 tab 05/24/19 [Rx] Oxygen Therapy Mode: Room Air Patient Handouts: Community-Acquired Pneumonia, Adult, [id number] Forms: ED Department Discharge Referrals: Tim Xiao NP [Nurse Practitioner] - 05/31/19 1:00 pm (Please arrive 15 minutes early to register for your appointment) - Discharge Summary/Plan Comment DC Time >30 min.: No Discharge Summary/Plan Comment: Plan For his community-acquired pneumonia left lower lobe will continue the levofloxacin 500 mg once a day 7 days this medication has been faxed to [facility] pharmacy he will continue to use Tylenol or Motrin as needed for fever control continue to use the incentive spirometer and ambulate. He does have a follow-up with his primary care in next couple of days for reevaluation. For his drug eruption secondary to cephalosporin will continue to use hydroxyzine as needed for pruritic symptoms. Follicular lymphoma will follow up with oncology has plans for chemotherapy at the end of this month - General Info Date of Service: 05/24/19 Admission Dx/Problem (Free Text: Admission Diagnosis/Problem Admission Diagnosis/Problem Left lower lobe pneumonia Subjective Update: Continues to improve feels better than yesterday, did spike a fever last night 100.8. He feels something is changed in his breathing because he can now breathing better he can walk further down the hallway asked to go home. Tolerating diet Functional Status: Reports: Pain Controlled - Review of Systems General: Reports: Fever HEENT: Reports: No Symptoms Pulmonary: Reports: No Symptoms Cardiovascular: Reports: No Symptoms Gastrointestinal: Reports: No Symptoms - Patient Data Vitals - Most Recent: Last Vital Signs Temp 98.6 F 05/24/19 07:01 Pulse 84 05/24/19 07:01 Resp 18 05/24/19 07:01 BP 118/62 05/24/19 07:01 Pulse Ox 95 05/24/19 07:01 Weight - Most Recent: 68.402 kg I&O - Last 24 hours: Intake & Output 05/23/19 05/24/19 05/24/19 22:59 06:59 14:59 Intake Total 236 650 Output Total 1900 650 200 Balance -1664 0 -200 SHAKILA Results - Last 24 hrs: Microbiology 05/22/19 17:50 Aerobic Blood Culture - Preliminary Blood - Arm, Right NO GROWTH AFTER 1 DAY Anaerobic Blood Culture - Preliminary NO GROWTH AFTER 1 DAY 05/22/19 17:40 Aerobic Blood Culture - Preliminary Blood - Arm, Right NO GROWTH AFTER 1 DAY Anaerobic Blood Culture - Preliminary NO GROWTH AFTER 1 DAY Med Orders - Current: Current Medications Acetaminophen (Tylenol) 650 mg PO Q4H PRN PRN Reason: Pain (Mild 1-3)/fever Last Admin: 05/23/19 15:57 Dose: 650 mg Albuterol (Proventil Neb Soln) 2.5 mg NEB Q4H PRN PRN Reason: Shortness Of Breath/wheezing Allopurinol (Zyloprim) 100 mg PO DAILY [facility] Last Admin: 05/23/19 09:00 Dose: 100 mg Aspirin (Ecotrin) 325 mg PO DAILY [facility] Last Admin: 05/23/19 09:00 Dose: 325 mg Atorvastatin Calcium (Lipitor) 20 mg PO BEDTIME [facility] Last Admin: 05/23/19 20:22 Dose: 20 mg Diphenhydramine HCl (Benadryl) 25 mg PO Q4H PRN PRN Reason: Itching Last Admin: 05/23/19 09:54 Dose: 25 mg Guaifenesin/Dextromethorphan (Robitussin Dm) 10 ml PO Q4H PRN PRN Reason: Cough Hydroxyzine HCl (Atarax) 25 mg PO Q6H PRN PRN Reason: Itching Last Admin: 05/24/19 07:30 Dose: 25 mg Levofloxacin/Dextrose 750 mg/ (Premix) 150 mls @ 100 mls/hr IV Q24H [facility] Last Admin: 05/23/19 17:20 Dose: 100 mls/hr Ibuprofen (Motrin) 600 mg PO Q6H PRN PRN Reason: Pain/Fever Last Admin: 05/24/19 07:30 Dose: 600 mg Magnesium Hydroxide (Milk Of Magnesia) 30 ml PO Q12H PRN PRN Reason: Constipation Melatonin (Melatonin) 9 mg PO BEDTIME PRN PRN Reason: Sleep Last Admin: 05/22/19 21:10 Dose: 9 mg Metoprolol Succinate (Toprol Xl) 50 mg PO DAILY [facility] Last Admin: 05/23/19 09:03 Dose: Not Given Ondansetron HCl (Zofran Odt) 4 mg PO Q6H PRN PRN Reason: Nausea able to take PO Ondansetron HCl (Zofran) 4 mg IV Q6H PRN PRN Reason: Nausea/Vomiting Oxybutynin Chloride (Oxybutynin) 5 mg PO TID [facility] Last Admin: 05/23/19 20:22 Dose: 5 mg Pantoprazole Sodium (Protonix) 40 mg PO ACBREAKFAST [facility] Last Admin: 05/24/19 07:30 Dose: 40 mg Senna/Docusate Sodium (Senna Plus) 1 tab PO BID PRN PRN Reason: Constipation Discontinued Medications Acetaminophen (Tylenol) 650 mg PO NOW ONE Stop: 05/21/19 17:02 Last Admin: 05/21/19 17:06 Dose: 650 mg Sodium Chloride (Normal Saline) 1,000 mls @ 500 mls/hr IV ASDIRECTED [facility] Last Admin: 05/21/19 17:44 Dose: 500 mls/hr Levofloxacin/Dextrose 750 mg/ (Premix) 150 mls @ 100 mls/hr IV ONETIME ONE Stop: 05/21/19 19:14 Last Admin: 05/21/19 18:04 Dose: 100 mls/hr Sodium Chloride (Normal Saline) 1,000 mls @ 100 mls/hr IV ASDIRECTED [facility] Last Admin: 05/22/19 06:12 Dose: 100 mls/hr - Exam Quality Assessment: Denies: Supplemental Oxygen General: Reports: Alert, Oriented HEENT: Reports: Pupils Equal Neck: Reports: Supple Lungs: Reports: Clear to Auscultation, Normal Respiratory Effort Cardiovascular: Reports: Regular Rate, Regular Rhythm GI/Abdominal Exam: Soft, Non-Tender *Q Meaningful Use (DIS) - VTE *Q VTE Pharmacological Contraindications *Q: Thrombocytopenia
[2019-05-24] MEDS: Aspirin 325 MG Tab.EC PO SCH (11:01)
[2019-05-24] MEDS: Metoprolol Succinate 50 MG Tab.ER PO SCH (11:02)
[2019-05-24] MEDS: Allopurinol 100 MG Tab PO SCH (11:02)
[2019-05-24] MEDS: Oxybutynin 5 MG Tab PO SCH (11:02)
== END 2019-05-24 11:04 | disposition home or self-care (01) | DRG 194 ==
LOC: JP.ED 14:55 → UNDOADMIN 17:46 → JP.MS 17:46 → UNDODISIN 05-24 11:04
PROVIDERS: ADMIT Internal Medicine; ATTEND Family Medicine
DX: R50.9 Fever, unspecified (principal); J18.1 Lobar pneumonia, unspecified organism; C82.90 Follicular lymphoma, unspecified, unspecified site; L27.0 Generalized skin eruption due to drugs and medicaments taken internally; T36.1X5A Adverse effect of cephalosporins and other beta-lactam antibiotics, initial encounter; I25.10 Atherosclerotic heart disease of native coronary artery without angina pectoris; I10 Essential (primary) hypertension; Z95.5 Presence of coronary angioplasty implant and graft; E78.00 Pure hypercholesterolemia, unspecified; K58.9 Irritable bowel syndrome, unspecified; M19.90 Unspecified osteoarthritis, unspecified site; L40.9 Psoriasis, unspecified; Z92.21 Personal history of antineoplastic chemotherapy; Z79.82 Long term (current) use of aspirin; Z79.899 Other long term (current) drug therapy
CPT/HCPCS: 36415; 71046; 83605; 84145; 85025; 99284; A9270; J7030; 80048; 85027; 87040; 97110-GP; 97162-GP; 97530-GP; 97535-GP; 99285; J1956